=== PATIENT | female | born 1990 ===

== ENCOUNTER 2016-08-27 15:37 | Inpatient (IN) | payer OTHER ==
[~2016-08-27] VITALS: Ht 160 cm; Wt 49.9 kg
[2016-08-29] VITALS (7 sets, daily range): BP systolic 114–129; BP diastolic 68–90
[2016-08-29] MEDS ORDERED: CLONIDINE HCL 0.1 MG TABLET PO PRN (01:15)
[2016-08-29] MEDS ORDERED: ONDANSETRON 4 MG/2 ML VIAL IM PRN (01:15)
[2016-08-29] MEDS ORDERED: ACETAMINOPHEN 325 MG TABLET PO PRN (01:15)
[2016-08-29] MEDS ORDERED: MIRALAX 17 GM POWD.PACK PO PRN (01:15)
[2016-08-29] MEDS ORDERED: DICYCLOMINE HCL 20 MG TABLET PO PRN (01:15)
[2016-08-29] MEDS ORDERED: MAG HYDROX/AL HYDROX/SIMETH 30 ML LIQUID UDC PO PRN (01:15)
[2016-08-29] MEDS ORDERED: LORAZEPAM 2 MG/1 ML VIAL IM PRN (01:15)
[2016-08-29] MEDS ORDERED: DIAZEPAM 10 MG TABLET PO PRN ×2 (01:15)
[2016-08-29] MEDS ORDERED: LOPERAMIDE HCL 2 MG CAPSULE PO PRN ×2 (01:15)
[2016-08-29] MEDS ORDERED: IBUPROFEN 400 MG TABLET PO PRN (01:15)
[2016-08-29] MEDS ORDERED: DIAZEPAM 5 MG TABLET PO PRN (01:15)
--- NOTE | 2016-08-29 01:15 | NUR ---
Pre-Admission Pre admission assessment performed in the intake office of [facility]. Pt is a 25 yo female who is A&O x4 and ambulatory. She appears mildly intoxicated and answers questions appropriately. Vital signs B/P 115/78, HR 93, RR 16, O2 sat 100%, T 97.9, pain 0/10. She is 5'3" and weighs 110lb. Pt denies food or drug allergies. She reports that she has been using Xanax, Heroin, and Methamphetamine. She last used Xanax on 08/27/16, heroin on 08/27/16 at 0800, and methamphetamine 08/28/16 at 2200. Pt is in stable condition. [facility]
[2016-08-29] MEDS: ONDANSETRON ODT 4 MG TAB.RAPDIS SL PRN (01:51)
--- NOTE | 2016-08-29 01:52 | NUR ---
PRN Zofran administration Pt arrived on the unit and c/o nausea without vomiting. PRN Zofran administered.
[2016-08-29] MEDS ORDERED: ONDANSETRON ODT 4 MG TAB.RAPDIS ONE (01:59)
--- NOTE | 2016-08-29 02:52 | NUR ---
PRN Zofran reassessment PRN Zofran effective. Pt reports nausea is relieved.
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
[2016-08-29] MEDS ORDERED: LORAZEPAM 1 MG TABLET PO ONE (03:30)
[2016-08-29] MEDS ORDERED: BUPRENORPHINE HCL 2 MG TAB.SUBL SL ONE (03:36)
[2016-08-29] MEDS ORDERED: LORAZEPAM 1 MG TABLET ONE (03:37)
[2016-08-29] MEDS ORDERED: diphenhydrAMINE 50 MG CAPSULE ONE (03:37)
[2016-08-29] MEDS: diphenhydrAMINE 50 MG CAPSULE PO PRN (03:47)
[2016-08-29 03:54] LABS: *URINE HCG, QUAL NEGATIVE (NEGATIVE)
[2016-08-29 03:57] LABS: *AMPHETAMINE, URINE POSITIVE (NEGATIVE); *BARBITURATE, URINE NEGATIVE (NEGATIVE); *CANNABINOID, URINE POSITIVE (NEGATIVE); *COCCAINE, URINE NEGATIVE (NEGATIVE); *OPIATE, URINE POSITIVE (NEGATIVE); *PHENCYCLIDINE SCREEN,URINE NEGATIVE (NEGATIVE)
[2016-08-29] MEDS: BUPRENORPHINE HCL 2 MG TAB.SUBL SL PRN ×2 (04:03→10:08)
--- NOTE | 2016-08-29 04:04 | NUR ---
PRN Subutex and Benadryl/One time Ativan administered Pt reports anxiety, chills, body aches, all over "itching", and inability to sleep. She has difficulty sitting still and is unable to stop touching her left eye which appears to be infected. Educated pt regarding hand hygiene and to avoid touching her eyes. COWS 13 and CIWA 9. Contacted MD. Orders received and carried out.
--- NOTE | 2016-08-29 05:04 | NUR ---
One time Ativan/PRN Subutex and Benadryl reassessment Ativan, Subutex, and Benadryl somewhat effective. Pt reports that she feels somewhat better but has been unable to fall asleep. Her eyes are closed and she frequently shifts in bed. COWS 7 and CIWA 5. Encouraged relaxation.
[2016-08-29] MEDS ORDERED: TRAZ-147 PO (05:14)
[2016-08-29] MEDS ORDERED: METH750T3 PO (05:14)
[2016-08-29] MEDS ORDERED: BUPR300T54 PO (05:14)
[2016-08-29] MEDS ORDERED: TETR-47 OP (05:31)
[2016-08-29] MEDS ORDERED: MELA1TAB2 PO (05:31)
[2016-08-29] MEDS ORDERED: [UNRECOGNIZED DRUG - CODE] (05:31)
[2016-08-29] MEDS ORDERED: MENT118G TP (05:31)
[2016-08-29] MEDS ORDERED: MICO45CR12 VG (05:31)
[2016-08-29] MEDS ORDERED: GABA-534 PO (05:31)
--- NOTE | 2016-08-29 07:25 | NUR ---
END OF SHIFT Report provided to day shift nurse. Pt is lying in bed resting. She is a 25 yo female admitted to [facility] today at 0146. She is A&O and ambulatory. NKA, full code, regular diet. PRN Subutex, one time Ativan, and PRN Benadryl administered. Contact isolation precautions in place for suspected myaisis. Last COWS 7 and CIWA 5. She drank 500mL and did not sleep. Fall and seizure precautions in place. Bed down with call light in reach.
[2016-08-29] MEDS ORDERED: IVER3TAB2 PO (07:50)
--- NOTE | 2016-08-29 07:50 | NUR ---
START OF SHIFT NOTE Received report from night nurse, 25 year old female admitted for Benzo/Heroin/Meth dependence. NKA, full code, regular diet. Per endorsement pt received PRN Subutex, one time Ativan, and PRN Benadryl effective per night nurse. Pt cont with contact isolation precautions in place for suspected myiasis. Last COWS 7 and CIWA 5. Received pt alert awake oriented x4 in stable condition, breathing normal no SOB noted. Safety measures in place, call light within reach. Will cont to monitor.
[2016-08-29] MEDS: MULTIVITAMINS,THERAPEUTIC TABLET PO SCH (08:45)
[2016-08-29] MEDS ORDERED: NICOTINE 14 MG/24HR PATCH TD SCH (09:00)
--- NOTE | 2016-08-29 09:50 | NUR ---
PT COMMUNICATION Offered pt Nicotine patch, pt states"I just want to smoke". Educated pt that per MD pt unable to smoke at this time. Pt continues to refuses. Will cont to monitor.
--- NOTE | 2016-08-29 10:08 | NUR ---
PRN Subutex/Valium Pt reports anxiety, chills, body aches, difficulty sitting still and is unable to stop touching her left eye, agitation,Yawning, COWS 12 and CIWA 9. PRN Subutex 4mg SL/Valium 10mg Po administered as ordered. Addendum: 08/29/16 at 1221 by GABO SUGGS LVN Will cont to monitor.
[2016-08-29] MEDS: METHOCARBAMOL 750 MG TABLET PO PRN (10:09)
--- NOTE | 2016-08-29 10:09 | NUR ---
PRN ROBAXIN Pt c/o of muscle spasms, PRN Robaxin 750mg Po administered as ordered. Will cont to monitor. Safety measures in place.
--- NOTE | 2016-08-29 10:38 | NUR ---
SUBUTEX REASSESSMENT Upon assessment pt reported medication effective COWS score decreased to 5. Will cont to monitor.
[2016-08-29] MEDS ORDERED: LORAZEPAM 1 MG TABLET PO PRN ×2 (11:00)
--- NOTE | 2016-08-29 11:08 | NUR ---
VALIUM REASSESSMENT Upon assessment pt reported medication effective CIWA score decreased to 5. Will cont to monitor.
--- NOTE | 2016-08-29 11:09 | NUR ---
ROBAXIN REASSESSMENT Upon assessment pt reported medication effective muscle spasms decreased. Will cont to monitor.
[2016-08-29 12:52] LABS: ETHANOL < 3 MG/DL (0-0)
[2016-08-29 12:53] LABS: ALANINE AMINOTRANSFERASE 19 U/L (14-59); ALKALINE PHOSPHATASE 102 U/L (50-136); AMYLASE 44 U/L (25-115); ASPARTATE AMINOTRANSFERASE 22 U/L (15-37); BILIRUBIN,TOTAL 0.2 mg/dL (0.2-1.0); CARBON DIOXIDE 31 mmol/L (21-32); CHLORIDE 100 mmol/L (98-107); CREATININE 0.7 mg/dL (0.6-1.3); GLUCOSE 82 mg/dL (74-106); LIPASE 105 U/L (73-393); MAGNESIUM 1.9 mg/dL (1.8-2.4); POTASSIUM 3.7 mmol/L (3.5-5.1); TOTAL PROTEIN, SERUM 9.2 g/dL (6.4-8.2); UREA NITROGEN, BLOOD 9 mg/dL (7-18)
[2016-08-29 13:02] LABS: THYROID STIMULATING HORMONE 3.061 mIU/mL (0.358-3.740)
[2016-08-29 13:04] LABS: BASOPHILS # (AUTO) 0.2 K/uL (0.0-8.0); EOSINOPHILS # (AUTO) 0.2 K/uL (0.0-0.7); EOSINOPHILS % (AUTO) 1.3 % (0.0-7.0); HEMATOCRIT 43.3 % (37-47); HEMOGLOBIN 14.6 G/DL (12.0-16.0); LYMPHOCYTES # (AUTO) 3.7 K/UL (0.8-4.8); LYMPHOCYTES % (AUTO) 23.8 % (20.5-51.5); MEAN CORPUSCULAR HEMOGLOBIN 31.1 UUG (27.0-31.0); MEAN CORPUSCULAR HGB CONC 34 g/dL (32.0-37.0); MEAN CORPUSCULAR VOLUME 92.1 FL (81.0-99.0); MONOCYTES % (AUTO) 6.6 % (0.0-11.0); NEUTROPHILS # (AUTO) 10.3 K/UL (1.8-8.9); NEUTROPHILS % (AUTO) 67.3 % (38.5-71.5); PLATELET COUNT (AUTO) 428 K/UL (150-450); WHITE BLOOD COUNT (AUTO) 15.4 K/UL (4.0-11.2)
[2016-08-29] MEDS: BUPRENORPHINE HCL 2 MG TAB.SUBL SL SCH ×3 (13:31→21:00)
[2016-08-29] MEDS: LORAZEPAM 1 MG TABLET PO SCH ×3 (13:31→21:00)
[2016-08-29] MEDS: NICOTINE POLACRILEX 4 MG GUM-PK OF TEN BC PRN (13:52)
--- NOTE | 2016-08-29 13:57 | NUR ---
NICOTINE PATCH/NICOTINE GUM ADMINISTERED After speaking with Dr. Aguilar. Pt agreed to nicotine patch, and Gum. Patch and Gum administered as ordered. Will cont to monitor.
[2016-08-29] MEDS ORDERED: NICOTINE 21 MG/24HR PATCH TD ONE (14:00)
[2016-08-29 14:21] LABS: LYMPHOCYTES % (MANUAL) 27 % (20-40); MONOCYTES % (MANUAL) 2 % (2-10); NEUTROPHILS % (MANUAL) 63 % (42-75)
[2016-08-29] MEDS: GABAPENTIN 300 MG CAPSULE PO SCH ×2 (15:32→21:00)
--- NOTE | 2016-08-29 19:25 | NUR ---
END OF SHIFT NOTE Gave report to night nurse, 25 year old female admitted for Benzo/Heroin/Meth dependence. NKA, full code, regular diet. Pt stated on Subutex and Ativan taper tolerated well. Pt cont with contact isolation precautions in place for suspected myiasis. Subutex and Ativan scheduled dose held in the evening pt appears sedated and unsteady MD notified. Last CIWA-4, COWS-5. Pt received PRN medications effective. All safety measures in place, call light within reach. Pt endorsed to night nurse in stable condition.
--- NOTE | 2016-08-29 19:26 | NUR ---
Start of shift note Received report from day shift nurse. Pt is a 25 yo male, A+Ox4, presenting to [facility] for Benzo/Opiate/Methamphetamine dependence. Pt has NKA, is Full Code status, and on Regular diet. Pt is on Fall and Seizure precautions. Pt has HX of HPV, UTI, Depression, Anxiety, Fractured Sternum, T1 FX, Right hand FX, Left eye infection. Pt is on 5 day Ativan and Subutex tapers, tolerated well. No s/s of distress noted at this time. Respirations even and unlabored. Will continue to monitor. Addendum: 08/30/16 at 0608 by AILYN HUGHES LVN 25 yo Female. Pt is on 1:1 monitoring to safety and on C/I for possible scabies.
[2016-08-30 00:20] VITALS: BP 111/65
[2016-08-30 04:02] VITALS: BP 104/68
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
[2016-08-30 08:00] VITALS: BP 125/88
[2016-08-30 08:15] LABS: *BILIRUBIN,URIN NEGATIVE (NEGATIVE); *BLOOD, URINE 2+ (NEGATIVE); *CLARITY,URINE CLOUDY (CLEAR); *KETONES,URINE NEGATIVE (NEGATIVE); *PROTEIN,URINE 2+ (NEGATIVE); *UROBILINOGEN,URINE 0.2 E.U./dl (NORMAL); LEUKOCYTE ESTERASE ,URINE 3+ (NEGATIVE); NITRITE, URINE NEGATIVE (NEGATIVE); UGLUCOSE NEGATIVE (NEGATIVE)
[2016-08-30 08:38] LABS: *COLOR,URINE YELLOW (YELLOW)
[2016-08-30 08:40] LABS: BACTERIA,URINE MANY /HPF (NONE SEEN); RBC,URINE 50-80 /HPF (0-3); SQUAMOUS EPITHELIAL CELL,UR MODERATE /HPF (NONE SEEN); WBC,URINE TNTC /HPF (0-3)
[2016-08-30] MEDS ORDERED: TUBERCULIN,PURIF.PROT.DERIV. 5 TU/0.1 ML TEST ID ONE (09:00)
[2016-08-30] MEDS ORDERED: NICOTINE 14 MG/24HR PATCH TD SCH (09:00)
[2016-08-30] MEDS: LORAZEPAM 1 MG TABLET PO SCH ×3 (09:04→20:18)
[2016-08-30] MEDS: GABAPENTIN 300 MG CAPSULE PO SCH ×3 (09:05→20:17)
[2016-08-30] MEDS: MULTIVITAMINS,THERAPEUTIC TABLET PO SCH (09:05)
[2016-08-30] MEDS: BUPRENORPHINE HCL 2 MG TAB.SUBL SL SCH ×3 (09:05→20:18)
--- NOTE | 2016-08-30 09:30 | NUR ---
PPD administration Pt received PPD on left forearm at 0900 today, documentation completed in chart, pt educated on s/s reportable to nurse and MD, pt educated about s/e of medication pt verbalized understanding. Left arm to be reassessed on 09/01/16 @0900, all safety measures in place will continue to monitor and provide support.
[2016-08-30 12:00] VITALS: BP 101/64
[2016-08-30 16:00] VITALS: BP 100/67
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
[2016-08-30 20:16] VITALS: BP 116/78
[2016-08-30] MEDS: MUPIROCIN 2% OINT 22 GM TUBE NS SCH (20:17)
[2016-08-30] MEDS: SULFAMETH/TRIMETH 800/160 MG TABLET PO SCH (20:17)
[2016-08-30] MEDS: LACTOBACILLUS RHAMNOSUS GG 1 EACH CAPSULE PO SCH (20:17)
[2016-08-31 00:09] VITALS: BP 106/58
[2016-08-31 04:31] VITALS: BP 102/58
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
--- NOTE | 2016-08-31 07:01 | NUR ---
Start of Shift Notes: Received patient in her room. Alert and oriented x 4. Verbally responsive. Able to make his needs known. Respirations even and unlabored. No SOB noted. Skin warm and dry to touch. Abdomen soft and non-distended with (+) BS in all 4 quadrants. No complains of N/V/D or abdominal discomfort noted. Voids independently. Ambulatory ad yolanda with steady gait. Patient is a 25 year old female admitted for opiate/BZO and methamphetamine dependence who was placed on a 5-day Subutex and 5-day Ativan taper as ordered. No adverse reactions noted. Has past medical hx of left cyst infection, myiasis of scalp, UTI, depression, anxiety, fractured sternum, fractured T1, right hand fracture with seizures. NKA. FULL CODE. Regular diet. On fall and seizure precautions. Educated patient on the current plan of care and the medication regimen. Encouraged oral fluid intake and encouraged group participation to learn new skills to prevent relapse. Will continue to monitor throughout the shift.
[2016-08-31 08:00] VITALS: BP 98/53
[2016-08-31] MEDS: SULFAMETH/TRIMETH 800/160 MG TABLET PO SCH ×2 (08:23→20:23)
[2016-08-31] MEDS: MULTIVITAMINS,THERAPEUTIC TABLET PO SCH (08:23)
[2016-08-31] MEDS: LORAZEPAM 1 MG TABLET PO SCH ×4 (08:23→20:24)
[2016-08-31] MEDS: NICOTINE 21 MG/24HR PATCH TD SCH (08:23)
[2016-08-31] MEDS: MUPIROCIN 2% OINT 22 GM TUBE NS SCH ×2 (08:23→20:36)
[2016-08-31] MEDS: GABAPENTIN 300 MG CAPSULE PO SCH ×2 (08:23→14:41)
[2016-08-31] MEDS: LACTOBACILLUS RHAMNOSUS GG 1 EACH CAPSULE PO SCH ×2 (08:23→20:23)
[2016-08-31] MEDS ORDERED: BUPRENORPHINE HCL 2 MG TAB.SUBL SL SCH (09:00)
[2016-08-31 12:00] VITALS: BP 112/64
[2016-08-31] MEDS: METHOCARBAMOL 750 MG TABLET PO PRN (12:13)
--- NOTE | 2016-08-31 12:14 | NUR ---
Robaxin 750 mg PO given: Patient complained of muscle aches 5/10. Non-pharmacological interventions were ineffective. [id number] patient with Robaxin 750 mg PO as ordered. Will monitor for effectiveness.
[2016-08-31] MEDS ORDERED: KETOROLAC TROMETHAMINE 30 MG INJ IM PRN (12:30)
--- NOTE | 2016-08-31 13:14 | NUR ---
Re-assessment: Per patient, PRN Robaxin was effective in reducing patient's muscle aches and pains.
[2016-08-31] MEDS: BUPRENORPHINE HCL 2 MG TAB.SUBL SL SCH ×2 (14:41→20:23)
--- NOTE | 2016-08-31 14:42 | NUR ---
Clonidine 0.1mg PO given: Patient noted with chills, anxiety, agitation, sweats, and tearfulness. Redirected with non-pharmacological interventions. Medicated patient with Clonidine 0.1mg PO as ordered. Will monitor for effectiveness.
--- NOTE | 2016-08-31 15:42 | NUR ---
Re-assessment: Patient appears less anxious and less agitated at this time. PRN Clonidine was effective.
[2016-08-31 16:00] VITALS: BP 99/76
--- NOTE | 2016-08-31 18:49 | NUR ---
End of Shift Notes: Patient is a 25 year old female admitted for opiate/BZO and methamphetamine dependence who was placed on a 5-day Subutex and 5-day Ativan taper as ordered. No adverse reactions noted. Has past medical hx of left cyst infection, myiasis of scalp, UTI, depression, anxiety, fractured sternum, fractured T1, right hand fracture with seizures. NKA. FULL CODE. Regular diet. On fall and seizure precautions. On 1:1 and strict room restriction due to MRSA of nares and myiasis of the scalp as well as for safety due to unsteady gait and episodes of oversedation. On Bactrim DS and Bactroban as ordered. No adverse reactions noted. Initial COWS 13/CIWA 10, patient presented with muscle aches, and pain, anxiety and agitation, mild nausea with no vomit, sweating, chillsk, and hot flashes. Medicated patient with Robaxin 1240 for muscle aches 5/10 with help after 1 hour. Noted patient to be non-compliant with treatment and restrictions at times. Risk for AMA. Noted with episodes of agitation and anxiety, tearfulness noted. Unable to be redirected with non-pharmacological intervention. Medicated patient with Clonidine 0.1mg PO as ordered at 1442 with help after 1 hour. Per patient, Subutex and Ativan has been helping her with her withdrawal symptoms. Last COWS 4/CIWA 3. Contact isolation precaution observed due to MRSA of the nares. Encouraged frequent hand washing. All needs met and attended. Will continue to monitor.
[2016-08-31 20:00] VITALS: BP 118/64
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
[2016-08-31] MEDS ORDERED: GABAPENTIN 300 MG CAPSULE PO SCH (21:00)
[2016-08-31] MEDS: ONDANSETRON ODT 4 MG TAB.RAPDIS SL PRN (21:20)
--- NOTE | 2016-08-31 21:21 | NUR ---
RN note PRN Zofran Pt c/o feeling nauseous, with no vomiting. Administered Zofran 4 mg SL. Will reassess.
--- NOTE | 2016-08-31 22:23 | NUR ---
RN note reassess Pt verbalizes relief from nausea.
[2016-09-01] VITALS: BP 109/65
[2016-09-01 04:00] VITALS: BP 114/77
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
--- NOTE | 2016-09-01 07:30 | NUR ---
START OF SHIFT NOTE Received pt this Am laying in bed watching TV. Patient states she is feeling achey but reports she feels "good." Patient is on 5 day Subutex and Modified Ativan taper. Patient presents with generalized scratch peoples on body. Patient on contact precautions with sitter at bedside for 1:1 observation. She is positive for MRSA of the nares, left eye infection, and positive for UTI being treated with Bactrim. Patient slept for 6 hours and was given PRN Zofran ODT for nausea with effectiveness. Last COWS 6 CIWA 7 per night nurse. Vital signs stable. Patient in bed with bed locked and in lowest position and call peres within reach. Sitter at bedside. Will provide safe and supportive environment. Will continue to monitor. Addendum: 09/01/16 at 0913 by LIZETH CORONADO RN edit- 5 day Ativan taper. not modified
[2016-09-01 08:03] VITALS: BP 110/61
[2016-09-01] MEDS: MUPIROCIN 2% OINT 22 GM TUBE NS SCH ×2 (08:06→20:29)
[2016-09-01] MEDS: BUPRENORPHINE HCL 2 MG TAB.SUBL SL SCH ×3 (08:06→20:28)
[2016-09-01] MEDS: NICOTINE 21 MG/24HR PATCH TD SCH (08:07)
[2016-09-01] MEDS: SULFAMETH/TRIMETH 800/160 MG TABLET PO SCH (08:07)
[2016-09-01] MEDS: MULTIVITAMINS,THERAPEUTIC TABLET PO SCH (08:07)
[2016-09-01] MEDS: GABAPENTIN 300 MG CAPSULE PO SCH ×3 (08:07→20:27)
[2016-09-01] MEDS: LORAZEPAM 1 MG TABLET PO SCH ×3 (08:07→20:26)
[2016-09-01] MEDS: LACTOBACILLUS RHAMNOSUS GG 1 EACH CAPSULE PO SCH ×2 (08:07→20:26)
[2016-09-01 08:21] LABS: BASOPHILS % (AUTO) 0.5 % (0.0-2.0); EOSINOPHILS # (AUTO) 0.4 K/uL (0.0-0.7); EOSINOPHILS % (AUTO) 4.9 % (0.0-7.0); HEMOGLOBIN 12.9 G/DL (12.0-16.0); LYMPHOCYTES # (AUTO) 2.5 K/UL (0.8-4.8); LYMPHOCYTES % (AUTO) 32.8 % (20.5-51.5); MEAN CORPUSCULAR HEMOGLOBIN 31.1 UUG (27.0-31.0); MEAN CORPUSCULAR HGB CONC 34 g/dL (32.0-37.0); MEAN CORPUSCULAR VOLUME 91.3 FL (81.0-99.0); MONOCYTES % (AUTO) 12.5 % (0.0-11.0); NEUTROPHILS # (AUTO) 3.7 K/UL (1.8-8.9); NEUTROPHILS % (AUTO) 49.3 % (38.5-71.5); PLATELET COUNT (AUTO) 326 K/UL (150-450); RED BLOOD CELL COUNT(AUTO) 4.17 MIL/UL (4.2-5.4); WHITE BLOOD COUNT (AUTO) 7.6 K/UL (4.0-11.2)
[2016-09-01 08:23] LABS: CREATININE 0.7 mg/dL (0.6-1.3); MAGNESIUM 1.7 mg/dL (1.8-2.4); PHOSPHOROUS 3.4 mg/dL (2.5-4.9); POTASSIUM 3.8 mmol/L (3.5-5.1)
[2016-09-01] MEDS ORDERED: MAGNESIUM OXIDE 400 MG TABLET PO ONE (09:45)
[2016-09-01 12:00] VITALS: BP 97/60
[2016-09-01] MEDS: BACLOFEN 10 MG TABLET PO SCH ×2 (14:11→20:28)
[2016-09-01 16:00] VITALS: BP 112/68
[2016-09-01] MEDS: ONDANSETRON ODT 4 MG TAB.RAPDIS SL PRN (17:11)
--- NOTE | 2016-09-01 17:12 | NUR ---
PRN MEDICATION Patient c/o nausea. Administered Zofran ODT. Will reassess
--- NOTE | 2016-09-01 18:08 | NUR ---
PRN REASSESSMENT Patient sleeping in bed with RR even and unlabored, call peres within reach, side rails padded, sitter at bedside.
--- NOTE | 2016-09-01 18:23 | NUR ---
END OF SHIFT NOTE Patient continues on 5 day Subutex/ 5 day Ativan taper and tolerating well. Patient presents with fatigue and flat affect during shift. Patient presents with redness to left eye. Patient is on contact precautions for MRSA of the nares and Staph to the Left eye. Patient also has UTI and being treated with Bactrim. Patient showered today and cleaned up. Dr. Aguilar is aware. Patient continues on 1:1 for safety. Patient given PRN Zofran for nausea with effectiveness. Last COWS 10 CIWA 8. Patient sleeping in bed with bed locked and in lowest position, side rails padded x2, call peres within reach, sitter at bedside. All needs have been met. Safety measures in place. Will pass shift report to oncoming nurse.
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
[2016-09-01 20:00] VITALS: BP 114/75
[2016-09-01] MEDS: NICOTINE POLACRILEX 4 MG GUM-PK OF TEN BC PRN (20:28)
[2016-09-01] MEDS: AMOXICILLIN-CLAVUL 500-125MG TABLET PO SCH (20:28)
[2016-09-01] MEDS: METHOCARBAMOL 750 MG TABLET PO PRN (20:28)
[2016-09-01] MEDS: HYDROXYZINE PAMOATE 25 MG CAPSULE PO PRN (20:28)
--- NOTE | 2016-09-01 20:28 | NUR ---
PRN Administration Patient complains of 10/10 generalized body aches, moderate headache. Patient is very anxious and agitated d/t not being able to smoke and craving is high. PRN Nicotine gum, Motrin, Vistaril & Robaxin administered as ordered. Will reassess in 1 hour. Will continue to monitor patient.
[2016-09-01] MEDS ORDERED: NICOTINE 21 MG/24HR PATCH TD ONE ×2 (21:15→21:16)
[2016-09-01] MEDS ORDERED: NICOTINE 21 MG/24HR PATCH TD SCH (21:15)
--- NOTE | 2016-09-01 21:28 | NUR ---
PRN Reassessment Patient lying in bed with eyes closed. Patient with no facial grimacing noted. No complaints of nausea noted. Patient appears calm and comfortable. Will continue to monitor patient.
[2016-09-02] VITALS: BP 99/58
--- NOTE | 2016-09-02 | NUR ---
Cows/Ciwa deferred Patient Vitals taken and is WNL. Patient asleep at this time and refused to be assessed for Cows and Ciwa. Patient lying in bed with eyes closed. Patient appears calm and comfortable. No facial grimacing noted. Safety measures in place. Will continue to monitor patient.
[2016-09-02 04:00] VITALS: BP 96/56
--- NOTE | 2016-09-02 04:00 | NUR ---
Cows/Ciwa deferred Patient Vitals taken and is WNL. Patient asleep at this time. Unable to assess for Cows and Ciwa. Patient lying in bed with eyes closed. Patient appears calm and comfortable. No facial grimacing noted. Safety measures in place. Will continue to monitor patient.
--- NOTE | 2016-09-02 07:26 | NUR ---
End of Shift Note: Pt continues on a 5-day Subutex and 5-day and tolerating well. Pt continues to be on contact isolation for positive MRSA in nares, positive staph infection of left eye & E-Coli ESBL of the Urine. Patient currently on ATB Bactroban & Amoxicillin. Patient is on 1:1 observation for safety precautions. Last CIWA is 6 CIWA 4. PRN Nicotine gum, Motrin, Vistaril & Robaxin given during my shift and was effective. Pt was also given a one time order of the Nicotine patch for smoking cessation and was effective. Pt remained stable and vitals remains WNL Pt sleeps intermittently for a total of 6 7 hours. Pt consumed 897ml of fluids. Voided 2x with no bowel movement. All needs attended & met. Safety measures in place. Will continue to monitor patient.
--- NOTE | 2016-09-02 07:54 | NUR ---
BEGINNING OF SHIFT Patient endorsement report received from fuse cutter nurse, all pertinent information discussed. patient with admitting Dx: BZO/opiate dependence. Patient currently with ongoing 5 day Ativan taper AND 5 DAY Subutex taper as ordered, well tolerated, no ASE noted. patient currently on day 5 of taper. Patient admitted on the: 08/29/2016. As per fuse cutter patient slept for 7 hours, received PRN: Motrin, Vistaril, Robaxin, and nicotine gum, as per fuse cutter medications effective. Patient with last cow score of: 6, and last ciwa score of: 4. Patient received in bed with eyes closed, respirations even and unlabored, responsive to verbal stimuli, educated patient regarding plan of care for the day and medication regimen with good verbal understanding. safety measures in place. will continue to monitor.
[2016-09-02 08:04] VITALS: BP 99/60
[2016-09-02] MEDS: LORAZEPAM 1 MG TABLET PO SCH ×2 (08:26→21:46)
[2016-09-02] MEDS: GABAPENTIN 300 MG CAPSULE PO SCH ×3 (08:26→21:45)
[2016-09-02] MEDS: LACTOBACILLUS RHAMNOSUS GG 1 EACH CAPSULE PO SCH (08:26)
[2016-09-02] MEDS: MUPIROCIN 2% OINT 22 GM TUBE NS SCH ×2 (08:26→21:46)
[2016-09-02] MEDS: BACLOFEN 10 MG TABLET PO SCH ×3 (08:26→21:46)
[2016-09-02] MEDS: MULTIVITAMINS,THERAPEUTIC TABLET PO SCH (08:26)
[2016-09-02] MEDS: AMOXICILLIN-CLAVUL 500-125MG TABLET PO SCH ×2 (08:26→21:45)
[2016-09-02] MEDS: NICOTINE 21 MG/24HR PATCH TD SCH (08:26)
[2016-09-02] MEDS: BUPRENORPHINE HCL 2 MG TAB.SUBL SL SCH ×2 (08:27→21:45)
[2016-09-02 13:08] VITALS: BP 113/60
[2016-09-02 17:13] VITALS: BP 90/60
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
--- NOTE | 2016-09-02 19:21 | NUR ---
END OF SHIFT Patient alert and oriented x4, vital signs stable during shift. Patient with admitting Dx: Opiate/BZO Dependence. Patient with ongoing 5 day Ativan taper and 5 day Subutex as ordered,w ell tolerated, no ASE noted. Patient currently on day 5 of taper, well tolerated, no ASE noted. Patients 0900 assessment patient presented with: heart rate of 104, mild bone and joint aches, tremors that can be felt but not seen, mild anxiety, barely sweating, and c/o chills. 1300 assessment patient presented with: heart rate of 98, c/o chills, mild bone and joint aches, tremors that can be felt but not seen, mild anxiety and barely sweating with cow score of: 5 and ciwa score of: 3; 1700 assessment patient presented with: heart rate of 109, c/o chills, mild bone and joint aches, tremors that can be felt but not seen, and mild anxiety with cow score of: 6 and ciwa score of: 2. No PRN medications were administered during shift. Patient continues on contact isolation, precautions observed at all times. Patient continues on ATB therapy as ordered, well tolerate,d no ASE noted, patient afebrile during shift. Also with ongoing Bactroban oint to bilateral nares as ordered, well tolerated, no ASE noted. continues with 1:1 sitter for safety precautions. Patient encouraged adequate PO fluid intake as tolerated. Encouraged to attend group therapies/sessions to learn new coping skills to prevent relapse, denies any SI/HI. Safety measures in place. call light kept with in reach. all needs met and rendered. patient endorsed to caustic cresylate shift superintendent nurse, all pertinent information discussed.
[2016-09-02 20:00] VITALS: BP 110/67
[2016-09-02] MEDS: NICOTINE POLACRILEX 4 MG GUM-PK OF TEN BC PRN (21:45)
--- NOTE | 2016-09-02 21:45 | NUR ---
PRN Nicotine gum Patient requested medication to help stop her cravings to smoke. PRN Nicotine gum administered as ordered. Will continue to monitor patient.
[2016-09-02] MEDS: SULFAMETH/TRIMETH 800/160 MG TABLET PO SCH (21:46)
[2016-09-02] MEDS: MAGNESIUM HYDROXIDE 30 ML LIQUID UDC PO PRN (22:37)
--- NOTE | 2016-09-02 22:37 | NUR ---
PRN Milk of Magnesia Patient complains of constipation. Patient denies any stomach cramps. Abdomen soft & non-distended. PRN Milk of Magnesia administered as ordered. Will continue to monitor for bowel movement.
--- NOTE | 2016-09-02 22:45 | NUR ---
PRN Reassessment Patient verbalized less cravings to smoke. Patient lying in bed and appears calm and comfortable. No s/s of distress noted. Safety measures in place. Will continue to monitor patient.
[2016-09-03] VITALS: BP 106/65
[2016-09-03] MEDS: NAPHAZOLINE/PHENIR OPHT DROP 15 ML BOTTLE LEFTEYE PRN (04:03)
--- NOTE | 2016-09-03 04:03 | NUR ---
PRN Administration Patient complains eye itching and redness. Patient noted to be scratching eyes. Slight discomfort noted. Patient also complains of anxiety. Patient appears anxious and restless. PRN Naphcon opth drop and Vistaril administered as ordered. Will reassess in 1 hour. Will continue to monitor patient.
[2016-09-03] MEDS: HYDROXYZINE PAMOATE 25 MG CAPSULE PO PRN ×4 (04:11→22:04)
[2016-09-03 04:16] VITALS: BP 119/77
--- NOTE | 2016-09-03 05:03 | NUR ---
PRN Reassessment Patient asleep in bed at this time and appears comfortable. No eye scratching noted. Patient show no s/s of distress. Safety measures in place. Will continue to monitor patient.
--- NOTE | 2016-09-03 07:21 | NUR ---
End of Shift Note: Patient is alert to name place and situation. Pt continues completed her last dose of Subutex and Ativan taper last night. Pt continues to be on contact isolation for positive MRSA in nares, positive staph infection of left eye & E-Coli ESBL of the Urine. Patient currently on ATB Bactroban & Amoxicillin. Patient is on 1:1 observation for safety precautions. Last CIWA is 6 CIWA 4. PRN Nicotine gum, Vistaril & Milk of Magnesia given during my shift. Pt remained stable and vitals remains WNL Pt sleeps intermittently for a total of 7 hours. Pt consumed 1800 ml of fluids. Voided 4x with 1x bowel movement. All needs attended & met. Safety measures in place. Will endorse pt to day shift nurse.
--- NOTE | 2016-09-03 07:29 | NUR ---
BEGINNING OF SHIFT Patient endorsement report received from production shift supervisor nurse, all pertinent information discussed. patient with admitting Dx: BZO/opiate dependence. Patient completed 5 day ativan and 5 day subutex taper, well tolerated, no ASE will monitor closely for any s/sx of withdrawal, will monitor vital signs closely. Patient admitted on the: 08/29/2016. As per production shift supervisor patient slept for 7 hours, received PRN: Vistaril, nicotine gum, as per production shift supervisor medications effective. Patient with last cow score of: 6, and last ciwa score of: 4. Patient received in bed with eyes closed, respirations even and unlabored, responsive to verbal stimuli, educated patient regarding plan of care for the day and medication regimen with good verbal understanding. safety measures in place. will continue to monitor.
[2016-09-03] MEDS: GABAPENTIN 300 MG CAPSULE PO SCH ×3 (08:30→20:11)
[2016-09-03] MEDS: AMOXICILLIN-CLAVUL 500-125MG TABLET PO SCH ×2 (08:30→20:11)
[2016-09-03] MEDS: SULFAMETH/TRIMETH 800/160 MG TABLET PO SCH ×2 (08:30→20:11)
[2016-09-03] MEDS: NICOTINE 21 MG/24HR PATCH TD SCH (08:30)
[2016-09-03] MEDS: MUPIROCIN 2% OINT 22 GM TUBE NS SCH ×2 (08:30→20:13)
[2016-09-03] MEDS: BACLOFEN 10 MG TABLET PO SCH ×3 (08:30→20:11)
[2016-09-03] MEDS: MULTIVITAMINS,THERAPEUTIC TABLET PO SCH (08:31)
[2016-09-03 09:03] VITALS: BP 112/70
[2016-09-03 13:11] LABS: HEPATITIS B SURFACE AB Reactive (.)
[2016-09-03] MEDS ORDERED: BACL10TA PO (13:45)
[2016-09-03] MEDS ORDERED: MUPI22OI2 NS (13:45)
[2016-09-03] MEDS ORDERED: DICY20TA28 PO (13:45)
[2016-09-03] MEDS ORDERED: HYDR-3895 PO (13:45)
[2016-09-03] MEDS ORDERED: Amoxicillin-Clav 500-125MG Tab PO (13:45)
[2016-09-03] MEDS ORDERED: IBUP-1481 PO (13:45)
[2016-09-03] MEDS ORDERED: SULF1TAB3 PO (13:45)
[2016-09-03] MEDS ORDERED: GABA-534 PO (13:45)
[2016-09-03 13:50] VITALS: BP 119/72
[2016-09-03] MEDS: ONDANSETRON ODT 4 MG TAB.RAPDIS SL PRN ×2 (14:13→22:04)
[2016-09-03] MEDS: DICYCLOMINE HCL 20 MG TABLET PO SCH ×2 (14:13→20:11)
--- NOTE | 2016-09-03 14:14 | NUR ---
PRN VISTARIL/ZOFRAN Patient reports increase in anxiety and restlessness, provided with non pharmacological interventions and encouraged to express self, provided with calming reassurance with no help, patient administered Vistaril as ordered, will monitor effectiveness of medication. Patient also with c/o increase nausea, administered Zofran as ordered, will monitor effectiveness. safety measures in place. will continue to monitor closely.
--- NOTE | 2016-09-03 15:15 | NUR ---
ZOFRAN/VISTARIL REASSESSMENT Patient reports medication effective, no c/o nausea, and reports feeling less anxious. safety measures in place. will continue to monitor.
[2016-09-03 15:47] LABS: *AMPHETAMINE, URINE NEGATIVE (NEGATIVE); *BARBITURATE, URINE NEGATIVE (NEGATIVE); *CANNABINOID, URINE NEGATIVE (NEGATIVE); *COCCAINE, URINE NEGATIVE (NEGATIVE); *OPIATE, URINE NEGATIVE (NEGATIVE); *PHENCYCLIDINE SCREEN,URINE NEGATIVE (NEGATIVE)
[2016-09-03 17:00] VITALS: BP 112/70
--- NOTE | 2016-09-03 17:40 | NUR ---
MD communication Pt noted to have a steady gait, pt is able to ambulate up and down the hallway. Dr Aguilar notified, gave ok to d/c 1:1 and for pt to leave her room. Pt educated on hand hygiene, pt verbalized her understanding.
--- NOTE | 2016-09-03 19:01 | NUR ---
END OF SHIFT Patient alert and oriented x4, vital signs stable during shift. Patient with admitting Dx: Opiate/BZO Dependence. Patient completed 5 day Ativan taper and 5 day Subutex as ordered,w ell tolerated, no ASE noted. Patients sitter was discontinued during shift. Patient allowed to leave room, but continues under contact isolation. Patient educated regarding hand hygiene with good verbal understanding. Insolation precautions observed at all times. Patients 0900 assessment patient presented with Heart rate of: 102, mild bone and joint aches, irritable, anxiety, and mild agitation with cow score oF: 5 and ciwa score of: 5. 1300 assessment patient presented with: heart rate of 101, mild anxiety and mild agitation with cow score of: 3 and ciwa score of: 2. 1700 assessment patient presented with: heart rate of 96, and mild anxiety, and mild agitation with cow score of: 2 and ciwa score of: 2. Administered PRN: Vistaril as ordered and Zofran as ordered during shift, medications were both effective one hour post administration. Patient continues on ATB therapy as ordered, well tolerate,d no ASE noted, patient afebrile during shift. Also with ongoing Bactroban oint to bilateral nares as ordered, well tolerated, no ASE noted. Patient encouraged adequate PO fluid intake as tolerated. Denies any SI/HI. Safety measures in place. call light kept with in reach. all needs met and rendered. patient endorsed to manager shift nurse, all pertinent information discussed.
[2016-09-03 20:00] VITALS: BP 123/86
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
[2016-09-03] MEDS: MAGNESIUM HYDROXIDE 30 ML LIQUID UDC PO PRN (20:13)
--- NOTE | 2016-09-03 20:13 | NUR ---
Milk of Magnesia administered for reports of constipation Pt reported difficulty, "using the bathroom". Will continue to monitor for bowel movement
[2016-09-03] MEDS: diphenhydrAMINE 50 MG CAPSULE PO PRN (22:04)
--- NOTE | 2016-09-03 22:04 | NUR ---
PRN Administration Pt reports nausea, 1 episode of emesis noted. Pt reports feeling anxious and unable to sleep. Zofran 4mg ODT, Vistaril 50mg PRN and Benadryl 50mg PRN administered. Safety measures in place. Will continue to monitor.
--- NOTE | 2016-09-03 23:04 | NUR ---
PRN Reassessment Upon reassessment, pt is sleeping, eyes closed, no s/s of acute distress noted. Safety measures in place. Will continue to monitor.
[2016-09-04] VITALS: BP 110/65
--- NOTE | 2016-09-04 | NUR ---
Vital Signs BP 110/65, Pulse 102, respirations 18, SpO2 96%, temp 98.2, pain 0/10 CIWA/COWS deferred d/t pt sleeping - to assess while pt is awake as ordered. Safety measures in place. Will continue to monitor.
[2016-09-04 04:00] VITALS: BP 112/80
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
--- NOTE | 2016-09-04 07:02 | NUR ---
start of shift note: received pt from police shift commander nurse, pt is in stable condition at this time. pt is admitted to [facility] for benzo/opiate/meth withdrawal/dependence. pt remains on isolation. pt has staph of l eye and mrsa of nares and uti of ecoli. pt slept through the night. pts last ciwa 3 and cows 2. will assist pt in discharging and will continue to monitor pt for any changes
[2016-09-04 08:00] VITALS: BP 119/73
[2016-09-04] MEDS: MUPIROCIN 2% OINT 22 GM TUBE NS SCH (08:21)
[2016-09-04] MEDS: BACLOFEN 10 MG TABLET PO SCH (08:21)
[2016-09-04] MEDS: GABAPENTIN 300 MG CAPSULE PO SCH (08:21)
[2016-09-04] MEDS: NAPHAZOLINE/PHENIR OPHT DROP 15 ML BOTTLE LEFTEYE PRN (08:21)
[2016-09-04] MEDS: AMOXICILLIN-CLAVUL 500-125MG TABLET PO SCH (08:22)
[2016-09-04] MEDS: SULFAMETH/TRIMETH 800/160 MG TABLET PO SCH (08:22)
[2016-09-04] MEDS: MULTIVITAMINS,THERAPEUTIC TABLET PO SCH (08:22)
[2016-09-04] MEDS: DICYCLOMINE HCL 20 MG TABLET PO SCH (08:22)
[2016-09-04] MEDS: NICOTINE 21 MG/24HR PATCH TD SCH (08:24)
--- NOTE | 2016-09-04 09:40 | NUR ---
D/C NOTE Pt is A/O x4. V/S remain WNL. Pt denies SI/HI or hallucinations. Pt shows no s/s of acute withdrawal at this time, and is stable. has medically cleared pt for d/c. COWS 2, CIWA 2, denies pain. Education on Hepatitis C, smoking cessation and medication side effects provided. Pt verbalizes understanding. All pt belongings are in belonging bag, including prescriptions, and home medications. Refuses PNU vaccination. Pt is being accompanied by HVAC ENGINEER at this time to be transported to rehab. All needs met.
== END 2016-09-04 09:40 | DRG 895 ==
LOC: SRC 08-29 00:41
PROVIDERS: ADMIT Internal Medicine; ATTEND Internal Medicine
PROC: HZ2ZZZZ Detoxification Services for Substance Abuse Treatment (ICD-10-PCS; principal; 2016-08-29)
PROC: HZ31ZZZ Individual Counseling for Substance Abuse Treatment, Behavioral (ICD-10-PCS; 2016-09-01)
DX: F11.23 Opioid dependence with withdrawal (principal); N30.00 Acute cystitis without hematuria; F13.230 Sedative, hypnotic or anxiolytic dependence with withdrawal, uncomplicated; F41.9 Anxiety disorder, unspecified; F17.210 Nicotine dependence, cigarettes, uncomplicated; Z22.322 Carrier or suspected carrier of Methicillin resistant Staphylococcus aureus; B87.0 Cutaneous myiasis; Z16.24 Resistance to multiple antibiotics; L71.9 Rosacea, unspecified; F32.9 Major depressive disorder, single episode, unspecified; F15.23 Other stimulant dependence with withdrawal; E83.42 Hypomagnesemia
CPT/HCPCS: 36415; 80307; 80324; 80349; 80361; 83690; 83735; 84100; 84443; 84703; 85025; 86580; 86592; 86705; 86706; 86803; 87070; 87077; 87086; 87340; 87806; A4663; G0480; Q0162; Q0163

== ENCOUNTER 2016-11-25 20:45 | Inpatient (IN) | payer OTHER ==
[~2016-11-25] VITALS: Ht 160 cm; Wt 45.4 kg
[~2016-11-25 20:45] MED LIST: Amoxicillin-Clav 500-125MG Tab PO; BACL10TA PO; DICY20TA28 PO; GABA-534 PO; HYDR-3895 PO; IBUP-1953 PO; MELA1TAB2 PO; METH750T3 PO; MICO45CR12 VG; MUPI22OI2 NS; SULF1TAB3 PO; TETR-55 OP
[2016-11-25 22:00] VITALS: BP 114/75
--- NOTE | 2016-11-25 22:05 | NUR ---
Pre-Admission Pre-admission assessment performed in the intake department of [facility]. Pt is A&O and ambulatory with a steady gait. Her face is pale and she appears mildly intoxicated. She answers all questions appropriately. Pt reports NKA. Vital signs are B/P 121/78, HR 104, RR 16, O2 sat 100%, T 98.0, pain 0/10. Pt reports that she has been using Xanax, Heroin, and Methamphetamine. Pt is stable and admission to continue on the [facility] unit.
[2016-11-25] MEDS ORDERED: MIRALAX 17 GM POWD.PACK PO PRN (22:30)
[2016-11-25] MEDS ORDERED: LORAZEPAM 2 MG/1 ML VIAL IM PRN (22:30)
[2016-11-25] MEDS ORDERED: CLONIDINE HCL 0.1 MG TABLET PO PRN (22:30)
[2016-11-25] MEDS ORDERED: LOPERAMIDE HCL 2 MG CAPSULE PO PRN ×2 (22:30)
[2016-11-25] MEDS ORDERED: ACETAMINOPHEN 325 MG TABLET PO PRN (22:30)
[2016-11-25] MEDS ORDERED: DIAZEPAM 5 MG TABLET PO PRN (22:30)
[2016-11-25] MEDS ORDERED: DICYCLOMINE HCL 20 MG TABLET PO PRN (22:30)
[2016-11-25] MEDS ORDERED: THIAMINE HCL 200 MG/2 ML VIAL IM ONE (22:30)
[2016-11-25] MEDS ORDERED: DIAZEPAM 10 MG TABLET PO PRN (22:30)
[2016-11-25] MEDS: ONDANSETRON ODT 4 MG TAB.RAPDIS SL PRN (22:36)
--- NOTE | 2016-11-25 22:37 | NUR ---
PRN Zofran Pt arrived on the unit and c/o nausea without vomiting and her face is pale. PRN Zofran administered.
[2016-11-25] MEDS ORDERED: ONDANSETRON ODT 4 MG TAB.RAPDIS ONE (22:46)
[2016-11-25 22:54] LABS: *AMPHETAMINE, URINE POSITIVE (NEGATIVE); *BARBITURATE, URINE NEGATIVE (NEGATIVE); *CANNABINOID, URINE POSITIVE (NEGATIVE); *COCCAINE, URINE NEGATIVE (NEGATIVE); *OPIATE, URINE POSITIVE (NEGATIVE); *PHENCYCLIDINE SCREEN,URINE NEGATIVE (NEGATIVE); *URINE HCG, QUAL NEGATIVE (NEGATIVE)
[2016-11-25] MEDS: BUPRENORPHINE HCL 2 MG TAB.SUBL SL PRN (23:02)
[2016-11-25] MEDS: IBUPROFEN 400 MG TABLET PO PRN (23:02)
--- NOTE | 2016-11-25 23:03 | NUR ---
PRN Motrin and Subutex Pt c/o headache, chills, runny nose, mild nausea, and anxiety. She is observed to have tremors and goose bumps. COWS 12 and CIWA 7. PRN Subutex and Motrin administered.
[2016-11-25] MEDS ORDERED: IBUPROFEN 400 MG TABLET ONE (23:11)
[2016-11-25] MEDS ORDERED: BUPRENORPHINE HCL 2 MG TAB.SUBL SL ONE (23:12)
[2016-11-25 23:28] LABS: BASOPHILS # (AUTO) 0.2 K/uL (0.0-8.0); BASOPHILS % (AUTO) 1.4 % (0.0-2.0); EOSINOPHILS # (AUTO) 0.4 K/uL (0.0-0.7); HEMATOCRIT 37.9 % (37-47); HEMOGLOBIN 12.7 G/DL (12.0-16.0); LYMPHOCYTES # (AUTO) 2.5 K/UL (0.8-4.8); LYMPHOCYTES % (AUTO) 21.4 % (20.5-51.5); MEAN CORPUSCULAR HEMOGLOBIN 30.8 UUG (27.0-31.0); MEAN CORPUSCULAR HGB CONC 34 g/dL (32.0-37.0); MEAN CORPUSCULAR VOLUME 91.9 FL (81.0-99.0); MONOCYTES # (AUTO) 0.9 K/UL (0.1-1.30); MONOCYTES % (AUTO) 7.6 % (0.0-11.0); NEUTROPHILS # (AUTO) 7.8 K/UL (1.8-8.9); NEUTROPHILS % (AUTO) 66.6 % (38.5-71.5); PLATELET COUNT (AUTO) 410 K/UL (150-450); RED BLOOD CELL COUNT(AUTO) 4.12 MIL/UL (4.2-5.4); WHITE BLOOD COUNT (AUTO) 11.8 K/UL (4.0-11.2)
[2016-11-25 23:34] LABS: ALANINE AMINOTRANSFERASE 22 U/L (14-59); ALKALINE PHOSPHATASE 75 U/L (50-136); AMYLASE 52 U/L (25-115); ASPARTATE AMINOTRANSFERASE 14 U/L (15-37); BILIRUBIN,TOTAL 0.2 mg/dL (0.2-1.0); CARBON DIOXIDE 31 mmol/L (21-32); CHLORIDE 102 mmol/L (98-107); CREATININE 0.6 mg/dL (0.6-1.3); GLUCOSE 84 mg/dL (74-106); LIPASE 119 U/L (73-393); MAGNESIUM 1.9 mg/dL (1.8-2.4); TOTAL PROTEIN, SERUM 7.4 g/dL (6.4-8.2); UREA NITROGEN, BLOOD 8 mg/dL (7-18)
[2016-11-25 23:40] LABS: THYROID STIMULATING HORMONE 0.542 mIU/mL (0.358-3.740)
--- NOTE | 2016-11-25 23:45 | NUR ---
ADMISSION Pt is a 26 yo female who [facility]16. She is A&O x4 and ambulatory with a steady gait. NKA, full code status, and on a regular diet. Pt appears mildly intoxicated and answers questions appropriately. Vital signs in intake are B/P 121/78, HR 104, RR 16, O2 sat 100%, T 98.0, pain 0/10. She is 5'3" and weighs 100lb. Pt has lost 10lb in the past 3 months. She has a PMH of HPV, h/o UTI, h/o myiasis, fractured sternum, fractured T1, fractured right hand, anxiety, and depression. Pt denies SI/HI and does not have a h/o seizures. Lung sounds clear, PERRLA, brisk capillary refill, bowel sounds present. She has pick peoples on bilateral hands from methamphetamine use. LMP was 11/18/16. She last had an episode of diarrhea earlier today. Pt reports nausea, and is observed to have goose bumps, and pale skin. History of Use 1) Xanax 2mg OQD for the past 3 months. Last used 1mg 11/25/16 at 0800. She has used Xanax for 12 years. 2) Heroin IV 1 - 1.5 grams per day for the past 3 months. Last used 0.5mg 11/25/16 at 0800. She has used Heroin for 10 years. 3) Methamphetamine IV 1.5 grams per day for the past 3 months. Last used 0.5 grams on 11/25/16 at 1900. She has used meth for 12 years. 4) GHB 1oz per day for the past 3 months. Last used 1 oz 11/24/16. She has used GHB "off and on". Treatment History 1) [facility] 08/2016 2) [facility] 05/2016 for 90 days. Pt smokes 5 cigarettes per day. She decided to come to treatment today because "I'm over it". Symptoms when she doesn't use include "nausea, anxiety, insomnia, body aches, chills, and fever". Pt's longest period of sobriety was 90 days 05/2016. Recently she is unemployed and has been living with friends. She does not have a primary care physician at home. COWS 12 and CIWA 7 on admission. Pt educated regarding use of the call light and all questions answered. Safety measures in place. Bed is down with call light in reach.
[2016-11-25 23:47] LABS: ETHANOL < 3 MG/DL (0-0)
[2016-11-26] VITALS (7 sets, daily range): BP systolic 95–116; BP diastolic 61–77
--- NOTE | 2016-11-26 00:02 | NUR ---
PRN Motrin and Subutex reassessment PRN Motrin and Subutex effective. Pt reports headache and nausea are relieved. She states "I feel better". Goose bumps and chills are no longer present. COWS 3 and CIWA 2.
[2016-11-26] MEDS: DIAZEPAM 10 MG TABLET PO PRN ×2 (02:58→08:26)
[2016-11-26] MEDS: diphenhydrAMINE 50 MG CAPSULE PO PRN (02:59)
--- NOTE | 2016-11-26 03:00 | NUR ---
PRN Valium and Benadryl Pt is frequently shifting in bed and rubbing her skin. Her pupils are larger than normal size. She reports that her skin feels "uncomfortable and "stringy". She is unable to sleep. Skin is warm, moist, and intact. COWS 6 and CIWA 10
[2016-11-26] MEDS ORDERED: diphenhydrAMINE 50 MG CAPSULE ONE (03:04)
[2016-11-26] MEDS ORDERED: DIAZEPAM 10 MG TABLET ONE (03:04)
--- NOTE | 2016-11-26 04:00 | NUR ---
0400 PRN Valium and Benadryl reassessment PRN Valium and Benadryl effective. Pt is lying in bed resting with eyes closed. Respirations even and unlabored. Safety measures in place.
--- NOTE | 2016-11-26 05:00 | NUR ---
PRN Zofran and Vistaril Pt woke up and reports nausea, anxiety, and that she has been unable to stay asleep although she feels tired. She states, "I'm starting to feel bad again". COWS 9 and CIWA 6. PRN Zofran and Vistaril administered.
[2016-11-26] MEDS: HYDROXYZINE PAMOATE 25 MG CAPSULE PO PRN (05:02)
[2016-11-26] MEDS: ONDANSETRON ODT 4 MG TAB.RAPDIS SL PRN (05:03)
[2016-11-26] MEDS ORDERED: HYDROXYZINE PAMOATE 25 MG CAPSULE ONE (05:10)
[2016-11-26] MEDS ORDERED: ONDANSETRON ODT 4 MG TAB.RAPDIS ONE (05:10)
--- NOTE | 2016-11-26 07:06 | NUR ---
END OF SHIFT Report provided to day shift nurse. Pt is lying in bed resting. She is a 26 yo female admitted to [facility] on 11/25 for BZD and Opiate dependence with a h/o methamphetamine use. She is A&O and ambulatory. NKA, full code, regular diet. She was experiencing s/s of withdrawal on admission. PRN Zofran x2, PRN Subutex, Motrin, Benadryl, Valium, and Vistaril administered. Last COWS 9 and CIWA 6 before last PRN's. She was able to fall asleep after. She drank 653mL and slept for 3 hours. Safety measures in place.
--- NOTE | 2016-11-26 07:07 | NUR ---
Start of Shift Notes: Received patient in her room. Alert and oriented x 4. Verbally responsive. Able to make needs known. Respirations even and unlabored. No SOB noted. SKin warm and dry to touch. Abdomen soft and non-distended. BS (+) in all 4 quadrants. No complains of N/V/D or constipation noted. Voids independently. Ambulatory ad yolanda with steady gait. Patient is a 26 year old female admitted for BZO/opiate/methamphetamine and GHB dependence who was placed on PRNs at this time. Has past medical hx of HPV, UTI, anxiety, depression, myiasis, fx sternum, fracture of t1 and right hand fracture. NKA. FULL CODE. Regular diet. On fall and seizure precautions. Educated patient on her current plan of care for the day and his medication regimen. Encouraged oral fluid intake and encouraged group participation to learn new skills to prevent relapse. On fall and seizure precautions. Will continue to monitor closely.
[2016-11-26] MEDS: MULTIVITAMINS,THERAPEUTIC TABLET PO SCH (08:26)
[2016-11-26] MEDS: FOLIC ACID 1 MG TABLET PO SCH (08:26)
[2016-11-26] MEDS: THIAMINE HCL 100 MG TABLET PO SCH (08:26)
[2016-11-26] MEDS: METHOCARBAMOL 750 MG TABLET PO PRN (08:26)
[2016-11-26] MEDS: BUPRENORPHINE HCL 2 MG TAB.SUBL SL PRN (08:26)
--- NOTE | 2016-11-26 08:26 | NUR ---
Clonidine 0.1mg/Robaxin 750mg/Sub 4/Valium 10 PO given: COWS 17/CIWA 12, patient noted with complains of chills, hot flashes, muscle aches and pains, goosebumps, pupil dilation, yawning, anxiety and agitation. Medicated patient with Clonidine 0.1mg PO, Robaxin 750mg PO, Subutex 4 mg SL adn Vaium 10 mg PO per COWS/CIWA score. Will monitor for effectiveness.
--- NOTE | 2016-11-26 08:56 | NUR ---
Re-assessment: Subutex 4mg COWS 9. Less anxiety, less agitation, less chills and hot flashes and skin is smooth.
[2016-11-26] MEDS ORDERED: TUBERCULIN,PURIF.PROT.DERIV. 5 TU/0.1 ML TEST ID ONE (09:00)
--- NOTE | 2016-11-26 09:26 | NUR ---
Re-assessment: Clonidine 0.1mg/Robaxin 750mg/Valium 10mg PO CIWA 8, no nausea, less anxiety, less sweating and less agitation noted.
[2016-11-26] MEDS ORDERED: LORAZEPAM 1 MG TABLET PO PRN ×2 (10:00)
[2016-11-26] MEDS: GABAPENTIN 300 MG CAPSULE PO SCH ×2 (12:40→16:19)
[2016-11-26] MEDS: LORAZEPAM 1 MG TABLET PO SCH ×3 (12:40→21:17)
[2016-11-26] MEDS: BUPRENORPHINE HCL 2 MG TAB.SUBL SL SCH ×3 (12:41→21:17)
[2016-11-26] MEDS: buPROPion XL 150 MG TAB.SR.24H PO SCH (12:41)
[2016-11-26] MEDS ORDERED: ARNICA (13:57)
[2016-11-26] MEDS ORDERED: [UNRECOGNIZED DRUG - CODE] (13:57)
[2016-11-26] MEDS ORDERED: [UNRECOGNIZED DRUG - OTHER] PO (13:57)
[2016-11-26] MEDS ORDERED: [UNRECOGNIZED DRUG - OTHER] (13:57)
[2016-11-26] MEDS ORDERED: CAMPHOR (13:57)
--- NOTE | 2016-11-26 18:43 | NUR ---
End of Shift Notes: Patient initiated 5-day Ativan and 5-day Subutex taper as ordered. No adverse reactions noted. VS monitored closely. No significant abnormalities noted. Withdrawal symptoms were closely monitored. Initial COWS 17/CIWA 12, patient presented with anxiety, fidgeting, agitation. Sweats, tremors, goosebumps, yawning, chills, hot flashes and muscle aches and pains. Medicated patient with Clonidine, Robaxin, Subutex and Valium 10 mg PO as ordered at 0826 with help after 1 hour. Last COWS 6/CIWA 4. Per patient, Subutex and Ativan has been effective in managing her withdrawal symptoms. Unable to participate in group and activities. All needs met and attended. Will continue to monitor closely.
--- NOTE | 2016-11-26 20:00 | NUR ---
START OF SHIFT Received report from day shift nurse. Pt attended a group meeting and returned to her room after. She is a 26 yo female admitted to [facility] on 11/25 for opiate and BZD dependence. She is A&O, ambulatory with a steady gait, but appears slightly drowsy. She has NKA, is full code status, and on a regular diet. She has a PMH of HPV, h/o UTI, myiasis, fractured sternum, fractured T1, fractured right hand, anxiety, and depression. On admission she admitted to using xanax 2 mg QOD, heroin 1-1.5 grams per day, methamphetamine 2 grams per day, and GHB 1oz per day. Pt started a 5 day Ativan and 5 day Subutex taper today. She reports anxiety, skin crawling, body aches. Pt is observed to be rubbing her skin in various places. She reports that she has not slept since prior to admission. Tapers due tonight. Fall and seizure precautions in place. Bed is down with call light in reach.
[2016-11-26] MEDS: BACLOFEN 10 MG TABLET PO PRN (21:27)
--- NOTE | 2016-11-26 21:28 | NUR ---
PRN Baclofen Pt reports generalized muscle aches 7/10 and spasms. She is observed to be restless and unable to relax in bed. PRN Baclofen administered.
[2016-11-26] MEDS ORDERED: TRAZODONE 50 MG TABLET PO ONE (21:45)
--- NOTE | 2016-11-26 22:28 | NUR ---
PRN Baclofen reassessment PRN Baclofen effective. Pt reports muscle aches are reduced to 2/10. She is lying in bed resting.
[2016-11-27] VITALS: BP 106/74
--- NOTE | 2016-11-27 | NUR ---
0000 COWS and CIWA deferred COWS and CIWA ordered Q4HWA. Pt is lying in bed resting with eyes closed. She is observed to be moving around in bed while sleeping. Vital signs obtained. Safety measures in place.
[2016-11-27 04:00] VITALS: BP 112/65
--- NOTE | 2016-11-27 04:00 | NUR ---
0400 COWS and CIWA deferred COWS and CIWA ordered Q4HWA. Pt is lying in bed resting with eyes closed. Vital signs obtained. Safety measures in place.
--- NOTE | 2016-11-27 07:25 | NUR ---
END OF SHIFT Report provided to day shift nurse. Pt is lying in bed resting. She is a 26 yo female admitted to [facility] on 11/25 for opiate and BZD dependence. She is A&O and ambulatory. NKA, is full code status, and on a regular diet. She has a PMH of HPV, h/o UTI, myiasis, fractured sternum, fractured T1, fractured right hand, anxiety, and depression. On admission she admitted to using xanax 2 mg QOD, heroin 1-1.5 grams per day, methamphetamine 2 grams per day, and GHB 1oz per day. Pt started a 5 day Ativan and 5 day Subutex taper 11/26. Pt was able to fall asleep and she was shifting in bed, sitting up, and at times lying sideways. Close monitoring was performed by staff for safety. Pt ambulates with a steady gait when awake. Last COWS 5 and CIWA 3. She drank 591mL and slept for 8 hours. Fall and seizure precautions in place. Bed is down with call light in reach.
--- NOTE | 2016-11-27 07:30 | NUR ---
Start of shift note; Received report from night nurse. Patient is a 26 year old female admitted on 11/25/16 for Benzo, Opiate dependence. Patient was placed on 5 day Ativan and 5 day Subutex tapers, no adverse reactions noted. Patient is on full code status, on regular diet , NKA. Patient is on fall and seizure precaution. Bed in lowest position, call light within reach. Will continue to monitor patient.
[2016-11-27 08:00] VITALS: BP 102/72
[2016-11-27] MEDS ORDERED: LORAZEPAM 1 MG TABLET PO SCH (09:00)
[2016-11-27] MEDS: MULTIVITAMINS,THERAPEUTIC TABLET PO SCH (09:49)
[2016-11-27] MEDS: LORAZEPAM 1 MG TABLET PO SCH ×4 (09:49→21:06)
[2016-11-27] MEDS: BUPRENORPHINE HCL 2 MG TAB.SUBL SL SCH ×3 (09:49→21:07)
[2016-11-27] MEDS: FOLIC ACID 1 MG TABLET PO SCH (09:49)
[2016-11-27] MEDS: buPROPion XL 150 MG TAB.SR.24H PO SCH (09:49)
[2016-11-27] MEDS: GABAPENTIN 300 MG CAPSULE PO SCH ×3 (09:49→16:38)
[2016-11-27] MEDS: THIAMINE HCL 100 MG TABLET PO SCH (09:51)
[2016-11-27 12:00] VITALS: BP 113/72
--- NOTE | 2016-11-27 14:52 | NUR ---
Medications held; Patient appears sedated, 1300 and 1500 due medications held due to sedation. MD was notified. Will closely monitor patient.
[2016-11-27 16:00] VITALS: BP 102/80
--- NOTE | 2016-11-27 19:13 | NUR ---
End of shift note; Patient is AOX4. Patient is a 26 year old female admitted on 11/25/16 for Benzo, Opiate dependence. Patient was placed on 5 day Ativan and 5 day Subutex tapers, no adverse reactions noted. Patient is on full code status, on regular diet , NKA. Patient is on fall and seizure precaution. Medications due were held due to sedation for 1300, 1500 and 1700, MD was notified. Patient is currently under direct supervision to prevent falls. All safety measures secured. Met all needs.
--- NOTE | 2016-11-27 19:45 | NUR ---
START OF SHIFT Received report from day shift nurse. Pt is lying in bed sleeping and is easily arousable. She is a 26 yo female admitted to [facility] on 11/25 for opiate and BZD dependence. She is A&O and ambulatory. She has NKA, is full code status, and on a regular diet. Pt has a 1:[address] due to frequent shifting and sitting up in bed while sleeping. She has a PMH of HPV, h/o UTI, myiasis, fractured sternum, fractured T1, fractured right hand, anxiety, and depression. On admission she admitted to using xanax 2 mg QOD, heroin 1-1.5 grams per day, methamphetamine 2 grams per day, and GHB 1oz per day. Pt started a 5 day Ativan and 5 day Subutex taper on 11/26. She reports generalized body aches, nasal stuffiness, anxiety, and inability to relax. Tapers due tonight. Fall and seizure precautions in place. Bed is down with call light in reach.
[2016-11-27 20:00] VITALS: BP 120/82
[2016-11-27] MEDS: BACLOFEN 10 MG TABLET PO PRN (21:06)
[2016-11-27] MEDS: ONDANSETRON ODT 4 MG TAB.RAPDIS SL PRN (21:06)
[2016-11-27] MEDS: MAGNESIUM HYDROXIDE 30 ML LIQUID UDC PO PRN (21:07)
--- NOTE | 2016-11-27 21:08 | NUR ---
PRN Baclofen, Zofran, and Milk of Magnesia Pt c/o generalized body aches 6/10, nausea, and difficulty having a bowel movement. She had one small hard BM tonight. PRN Baclofen, Zofran, and Milk of Magnesia administered.
--- NOTE | 2016-11-27 22:08 | NUR ---
PRN Baclofen, Zofran and Milk of Magnesia reassessment PRN Baclofen effective. Pt reports body aches are reduced to 2/10. PRN Zofran effective. Pt reports nausea is relieved. Milk of Magnesia not yet effective. Pt has not yet has a bowel movement.
[2016-11-28] VITALS: BP 100/67
[2016-11-28] MEDS: HYDROXYZINE PAMOATE 25 MG CAPSULE PO PRN (03:32)
--- NOTE | 2016-11-28 03:33 | NUR ---
PRN Vistaril Pt reports anxiety, restlessness, and inability to stay sleep. PRN Vistaril administered.
[2016-11-28 04:00] VITALS: BP 119/86
--- NOTE | 2016-11-28 04:33 | NUR ---
PRN Vistaril reassessment PRN Vistaril effective. Pt is lying in bed resting in bed with eyes closed. Respirations even and unlabored. Safety measures in place.
--- NOTE | 2016-11-28 07:05 | NUR ---
Start of Shift Report from the night nurse: pt is here for Benzo r/t Ativan 0.5mg tid, Opiates r/t Oxycodone 30mg tabs with 10-15 tabs per day, Lunesta 3-5mg and Marijuana with 1 joint; 4 day Valium taper completed and the pt is to be d/c'd today during my shift. Pt has NKDA, allergic to perfume, is a full code, regular diet, fall precautions ordered. HHx: Anxiety, depression, bipolar, PTSD and relapses. V/S stable. Skin is intact. Pt refused the PPD test and is aware with no new orders for assessment and pt has no s/sx of TB during my shift. No PRN's given last night. Pt is awake in room and getting ready for d/c. Will cont.to monitor the pt. Last JONNY 2 Addendum: 11/28/16 at 1441 by MARCIN SAGE RN ERROR WRONG PATIENT CHARTING
--- NOTE | 2016-11-28 07:20 | NUR ---
Start of Shift Report from the night nurse; pt is a 26 y/o female here for Benzo r/t Xanax 2mg qod, Heroin 1.1.5g IV daily, Methamphetamine 2g dialy and GHB 102mg dialy; 5 day Ativan taper and 5day Subutex taper. Pt is a full code, NKA, regular diet, fall precautions with sitter for safety r/t risk of falling OOB since pt caught rolling OOB and seizure precautions ordered. HHx: HPV, UTI, Anxiety, Depression, Myiasis, multiple fx's, Multiple relapses. V/S stable. Skin is not intact with multiple lesions from picking at skin. PRN Vistaril, baclofen, Zofran and MOM given last night. Last COWS 5 CIWA 5. Pt is asleep in room. Will cont. to monitor the pt.
[2016-11-28 08:00] VITALS: BP 117/84
[2016-11-28] MEDS: buPROPion XL 150 MG TAB.SR.24H PO SCH (08:37)
[2016-11-28] MEDS: MULTIVITAMINS,THERAPEUTIC TABLET PO SCH (08:37)
[2016-11-28] MEDS: THIAMINE HCL 100 MG TABLET PO SCH (08:37)
[2016-11-28] MEDS: LORAZEPAM 1 MG TABLET PO SCH ×3 (08:37→20:30)
[2016-11-28] MEDS: GABAPENTIN 300 MG CAPSULE PO SCH ×3 (08:37→18:42)
[2016-11-28] MEDS: FOLIC ACID 1 MG TABLET PO SCH (08:37)
[2016-11-28] MEDS ORDERED: BUPRENORPHINE HCL 2 MG TAB.SUBL SL SCH (09:00)
[2016-11-28] MEDS ORDERED: LORAZEPAM 1 MG TABLET PO SCH (09:00)
[2016-11-28 12:00] VITALS: BP 108/72
--- NOTE | 2016-11-28 12:00 | NUR ---
Deferred COWS & CIWA Pt is asleep in room so deferred COWS and CIWA. Sitter present. Will cont.to monitor the pt.
--- NOTE | 2016-11-28 13:45 | NUR ---
Medication Non-Administration Pt is room asleep so Gabapentin 600mg HELD. Will cont. to monitor the pt.
[2016-11-28] MEDS: BUPRENORPHINE HCL 2 MG TAB.SUBL SL SCH ×2 (15:00→20:30)
--- NOTE | 2016-11-28 15:15 | NUR ---
PRN Medication Administration Pt is in room drowsy in bed with nausea so PRN Zofran 4mg given SL as ordered. Will reassess in 30 minutes.
[2016-11-28] MEDS: ONDANSETRON ODT 4 MG TAB.RAPDIS SL PRN (15:18)
[2016-11-28 16:00] VITALS: BP 117/80
--- NOTE | 2016-11-28 16:00 | NUR ---
Deferred COWS and CIWA Pt is asleep in room with sitter present, so no COWS and CIWA noted at this time.
--- NOTE | 2016-11-28 16:16 | NUR ---
Reassessment Pt is in room asleep and no s/sx of N/V; Zofran is effective. Will cont. to monitor the pt.
--- NOTE | 2016-11-28 18:10 | NUR ---
Medication Non-Administration Ativan and Subutex Pt is still asleep in bed with sitter present so Ativan 1mg and Subutex 2 mg due at 1700 pm HELD so I notified Dr. Hall, no new orders at this time.
--- NOTE | 2016-11-28 19:27 | NUR ---
End of Shift Report to the night nurse; pt is a 26 y/o female here for Benzo r/t Xanax 2mg qod, Heroin 1.1.5g IV daily, Methamphetamine 2g dialy and GHB 102mg daily; 5 day Ativan taper and 5day Subutex taper. Pt is a full code, NKA, regular diet, fall precautions with sitter for safety r/t risk of falling OOB since pt caught rolling OOB and seizure precautions ordered. HHx: HPV, UTI, Anxiety, Depression, Myiasis, multiple fx's, Multiple relapses. V/S stable. Skin is not intact with multiple lesions from picking at skin. PRN Zofran given once during my shift. Last COWS 0 CIWA 0 and deferred since pt was asleep during the majority of my shift. HELD 1500pm doses of Subutex and Ativan with Dr. Hall notified. No new orders during my shift.
--- NOTE | 2016-11-28 19:27 | NUR ---
START OF SHIFT NOTE: Patient endorsed by outgoing day shift nurse. Report received. Patient is a 26 year old female admitted to [facility] on 11/25/16 for Benzodiazepines, Opioid, Gabapentin and Methamphetamine dependence, continue 5 Day Ativan and 5 day Subutex Taper with tolerated well without ASE. Patient remains compliant with treatment, medications, and diet regime. Patient reports NKA. Patient is Full Code, Regular Diet. Patient is on Fall and Seizures Precautions. Patient denies History of Seizures. Patient is a 1:1 for Safety. PMH: Anxiety, Depression, HPV, UTI, Myiasis, Fx Sternum, Fx T1, Fx Right hand. Substance Abuse, Tobacco dependence. Patient reports is a "third time in Treatment/Detox". Upon endorsement patient is in his Room alert and oriented x 4. Speech is soft and clear. VS: T: 98.4; BP: 115/83; HR: 115; RR: 19; O2 SAT: 100%. Pain level: "0/10". COWS 7, CIWA 6. Patient is anxious and agitated. Patient c/o increased anxiety, nervousness, barely sweating. Respiration s clear and even. Patient denies SOB, cough, and chest pain. Breathing Sounds are clear throughout. Bowel Sounds are active in all four quadrants. Patient denies SI/HI. Skin is not intact with multiple lesion from picking at skin. Skin is warm, and dry to touch. Encouraged fluids as tolerated. Encourage to attend groups activities. All needs met. Safety measures on place. Call light within reach, bed in lowest position and locked, padded rails up bilaterally. Will continue to monitor closely.
[2016-11-28 20:00] VITALS: BP 115/83
[2016-11-28] MEDS: diphenhydrAMINE 50 MG CAPSULE PO PRN (20:30)
--- NOTE | 2016-11-28 20:30 | NUR ---
PRN BENADRYL 50 MG 1 CAP PO ADMINISTRATION. Patient c/o insomnia and asked aid. PRN Benadryl 50 mg 1 cap PO administrated for insomnia with full glass of water as ordered. Patient tolerated well. All needs met. Safety measures on place. Call light within reach, bed in lowest position and locked, padded rails up bilaterally rails up bilaterally. Will continue to monitor closely.
--- NOTE | 2016-11-28 21:30 | NUR ---
RE-ASSESSMENT Patient is sleeping. Respirations even and unlabored. RR:14. PRN Benadryl PO was effective. All needs met. Safety measures on place. Call light within reach, bed in lowest position and locked, padded rails up bilaterally rails up bilaterally. Will continue to monitor closely.
[2016-11-29] VITALS: BP 98/68
[2016-11-29] MEDS ORDERED: TRAZODONE 50 MG TABLET ONE (00:30)
[2016-11-29] MEDS: TRAZODONE 50 MG TABLET PO PRN ×2 (01:30→21:42)
--- NOTE | 2016-11-29 01:30 | NUR ---
PRN TRAZODONE 50 MG 1 TAB PO ADMINISTRATION. Patient c/o insomnia and asked aid. PRN Trazodone 50 mg 1 tab PO administrated for insomnia with full glass of water as ordered. Patient tolerated well. All needs met. Safety measures on place. Call light within reach, bed in lowest position and locked, padded rails up bilaterally rails up bilaterally. Will continue to monitor closely.
--- NOTE | 2016-11-29 02:30 | NUR ---
RE-ASSESSMENT Patient is sleeping. Respirations even and unlabored. RR:15. PRN Trazodone PO was effective. All needs met. Safety measures on place. Call light within reach, bed in lowest position and locked, padded rails up bilaterally rails up bilaterally. Will continue to monitor closely.
[2016-11-29 04:00] VITALS: BP 94/57
--- NOTE | 2016-11-29 06:49 | NUR ---
END OF SHIFT NOTE: Patient endorsed to day shift nurse. Report given. Patient is a 26 year old female admitted to [facility] on 11/25/2016 for Benzodiazepines, Opioid, and Methamphetamine dependence, continue 5 Day Ativan and 5 day Subutex Taper with tolerated well without ASE. Patient remains compliant with treatment, medications, and diet regime. Patient reports NKA. Patient is Full Code, Regular Diet. Patient is on Fall and Seizures Precautions. Patients denies Seizures Hx r/t withdrawal from substances. PMH: Anxiety, Depression, HPV, UTI, Myiasis, Fx Sternum, Fx T1, Fx Right hand. Substance Abuse, Tobacco dependence. Patient reports is a "third time in Treatment/Detox". VS at 0400: T: 98.7; BP: 94/57; HR: 116; RR: 16; O2 SAT: 100%. Pain level: "0/10". Patient is a 1:1 for Safety. Last COWS 6, CIWA 4 at 0400. Patient presented with anxiety, agitation, nervousness, barely sweating, and restlessness. Respirations unlabored and even. Patient denies SOB, cough, and chest pain. Patient denies SI/HI. Skin is not intact with multiple lesion from picking at skin. Skin is warm, and dry to touch. Patient denies SI/HI. PRN Benadryl PO and PRN Trazodone administrated during last freelance digital project manager for insomnia were effective. Patient slept 8 hours, intake 1,546 ml, voided x2. Encourage adequate oral fluid intake as tolerated. Encourage to attend groups activities. All needs met. Safety measures in the place. Call light within reach, bed locked and in the lowest position, padded bed rails up x2.
--- NOTE | 2016-11-29 07:37 | NUR ---
BEGINNING OF SHIFT Patient endorsement report received from orthopaedic surgeon nurse, all pertinent information discussed. Patient with admitting Dx: Opiate/BZO dependence, and substance use of: methamphetamine and GHB Under close observation, Patient with ongoing 5 subutex taper and 5 day ativan taper as ordered, and is schedueld to begin day 3 of taper. patient was administered PRN: Benadryl and trazodone during orthopaedic surgeon, medication was effective as per orthopaedic surgeon, patient slept 08 hours. with last cow score of: 6 and last ciwa score of: 4. Fall and seizure precautions observed and in place. safety measures in place. will continue to monitor closely. Patient received in room, alert and oriented x4, educated regarding plan of care for the day and medication regimen with good verbal understanding. Will continue to monitor.
[2016-11-29 09:11] VITALS: BP 108/69
[2016-11-29] MEDS: MULTIVITAMINS,THERAPEUTIC TABLET PO SCH (09:14)
[2016-11-29] MEDS: THIAMINE HCL 100 MG TABLET PO SCH (09:14)
[2016-11-29] MEDS: FOLIC ACID 1 MG TABLET PO SCH (09:14)
[2016-11-29] MEDS: buPROPion XL 150 MG TAB.SR.24H PO SCH (09:15)
[2016-11-29] MEDS: GABAPENTIN 300 MG CAPSULE PO SCH ×3 (09:15→17:00)
[2016-11-29] MEDS: LORAZEPAM 1 MG TABLET PO SCH ×2 (09:15→20:10)
[2016-11-29] MEDS: BUPRENORPHINE HCL 2 MG TAB.SUBL SL SCH ×3 (09:15→20:11)
[2016-11-29] MEDS: IBUPROFEN 400 MG TABLET PO PRN (10:17)
--- NOTE | 2016-11-29 10:17 | NUR ---
PRN MOTRIN patient c/o pain 6/10 provided with non pharmacological interventions with no relief, administered Motrin as ordered, will monitor effectiveness.
--- NOTE | 2016-11-29 10:26 | NUR ---
ENDORSED CARE Patient endorsement report given to nurse, all pertinent information discussed.
--- NOTE | 2016-11-29 10:27 | NUR ---
ENDORSEMENT RECEIVED Received report from nurse to continue with care. Pt remains on 1:1 for safety precautions. Will continue to monitor.
[2016-11-29 12:45] VITALS: BP 99/61
--- NOTE | 2016-11-29 12:45 | NUR ---
COWS ASSESSMENT DEFERRED Pt is observed too sedative. Pt is arousable to touch. Respirations are even and unlabored. VS are WNL. Pt remains on 1:1 for safety precautions. Will continue to monitor. Addendum: 11/29/16 at 1318 by LUIS FELIPE JORDAN LVN Amended: Links added.
--- NOTE | 2016-11-29 12:59 | NUR ---
MEDICATION HELD Gabapentin 600mg as scheduled was held due to pt is too sedative. Pt is arousable to touch. VS are WNL. Pt remains on 1:1 for safety measures. Will continue to monitor.
[2016-11-29 16:00] VITALS: BP 106/66
--- NOTE | 2016-11-29 17:09 | NUR ---
Pt refused to take Gabapentin 600mg PO as scheduled at 1700. Pt states, "it's makes me depressed". Pt was educated on medication regimen. Pt needs further education. Will continue to monitor.
--- NOTE | 2016-11-29 18:50 | NUR ---
START OF SHIFT NOTE: Patient endorsed by outgoing day shift nurse. Report received. Patient is a 26 year old female admitted to [facility] on 11/25/16 for Benzodiazepines, Opioid, and Methamphetamine dependence, continue 5 Day Ativan and 5 day Subutex Taper with tolerated well without ASE. Patient remains compliant with treatment, medications, and diet regime. Patient reports NKA. Patient is Full Code, Regular Diet. Patient is on Fall and Seizures Precautions. Patients denies Seizures Hx r/t withdrawal from substances. Patient is a 1:1 for Safety. PMH: Anxiety, Depression, HPV, UTI, Myiasis, Fx Sternum, Fx T1, Fx Right hand. Substance Abuse, Tobacco dependence. Patient reports is a "third time in Treatment/Detox". Upon endorsement patient is inside the Room alert and oriented x 4. Speech is soft and clear. VS: T: 97.9; BP: 97/67; HR: 106; RR: 19; O2 SAT: 100%. Pain level: "0/10". COWS 7, CIWA 8. Patient is anxious and agitated. Patient c/o increased anxiety, nervousness, nausea, barely sweating. Respiration s clear and even. Patient denies SOB, cough, and chest pain. Breathing Sounds are clear throughout. Bowel Sounds are active in all four quadrants. Patient denies SI/HI. Skin is not intact with multiple lesion from picking at skin. Skin is warm, and dry to touch. Encouraged fluids as tolerated. Encourage to attend groups activities. All needs met. Safety measures on place. Call light within reach, bed in lowest position and locked, padded rails up bilaterally. Will continue to monitor closely.
--- NOTE | 2016-11-29 18:50 | NUR ---
END OF SHIFT Pt is a 26 yr old female, A&Ox3. Pt was admitted on 11/25/16 for Benzo/Opiate dependence and is on 5 day Subutex and 5 day Ativan taper as ordered. Medication omar well. Pt received Motrin PRN in the morning. Medication was effective. Pt remains on 1:1 for unsteady gait. No fall noted. Pt was encouraged to attend group session but pt was too sedative. Neurontin was held at 1300 and refused at 1700. Last COWS score was 4 and CIWA score was 1 at 1600. Skin is intact, warm and dry to touch. No tremors seen or felt. Encouraged increase fluid intake. Safety precautions are observed. Call light is within reach.
[2016-11-29] MEDS: ONDANSETRON ODT 4 MG TAB.RAPDIS SL PRN (19:07)
--- NOTE | 2016-11-29 19:07 | NUR ---
PRN ZOFRAN 4 MG 1TAB. RAPDIS SL ADMINISTRATION. Patient c/o nausea and asked aid. PRN Zofran 4 mg 1 tab. Rapdis SL administrated as ordered. Patient tolerated well. All needs met. Safety measures on place. Call light within reach, bed in lowest position and locked, padded rails up bilaterally rails up bilaterally. Will continue to monitor closely.
[2016-11-29 20:00] VITALS: BP 98/62
--- NOTE | 2016-11-29 20:07 | NUR ---
RE-ASSESSMENT Patient denies N/V. PRN Zofran 4 mg 1 tab. Rapdis SL was effective. All needs met. Safety measures on place. Call light within reach, bed in lowest position and locked, padded rails up bilaterally rails up bilaterally. Will continue to monitor closely.
[2016-11-29] MEDS: QUETIAPINE FUMARATE 25 MG TABLET PO SCH ×2 (20:11→20:22)
[2016-11-29] MEDS: LEVOFLOXACIN 750 MG TABLET PO SCH (20:11)
[2016-11-29] MEDS: LACTOBACILLUS RHAMNOSUS GG 1 EACH CAPSULE PO SCH (20:11)
--- NOTE | 2016-11-29 20:11 | NUR ---
PATIENT REFUSED ORDERED MEDICATIONS: SEROQUEL PO AND GABAPENTIN PO. CHARGE NURSE NOTIFIED.
[2016-11-29 20:19] LABS: CREATININE 0.6 mg/dL (0.6-1.3); MAGNESIUM 1.7 mg/dL (1.8-2.4); POTASSIUM 3.9 mmol/L (3.5-5.1)
[2016-11-29 20:30] LABS: BASOPHILS # (AUTO) 0.1 K/uL (0.0-8.0); BASOPHILS % (AUTO) 0.5 % (0.0-2.0); EOSINOPHILS # (AUTO) 0.6 K/uL (0.0-0.7); EOSINOPHILS % (AUTO) 6.3 % (0.0-7.0); HEMATOCRIT 35.8 % (37-47); HEMOGLOBIN 11.9 G/DL (12.0-16.0); LYMPHOCYTES # (AUTO) 2.3 K/UL (0.8-4.8); LYMPHOCYTES % (AUTO) 23.1 % (20.5-51.5); MEAN CORPUSCULAR HEMOGLOBIN 30.6 UUG (27.0-31.0); MEAN CORPUSCULAR HGB CONC 33 g/dL (32.0-37.0); MEAN CORPUSCULAR VOLUME 91.6 FL (81.0-99.0); MONOCYTES # (AUTO) 1.6 K/UL (0.1-1.30); MONOCYTES % (AUTO) 16.3 % (0.0-11.0); NEUTROPHILS # (AUTO) 5.5 K/UL (1.8-8.9); NEUTROPHILS % (AUTO) 53.8 % (38.5-71.5); PLATELET COUNT (AUTO) 377 K/UL (150-450); RED BLOOD CELL COUNT(AUTO) 3.91 MIL/UL (4.2-5.4); WHITE BLOOD COUNT (AUTO) 10.1 K/UL (4.0-11.2)
[2016-11-29] MEDS: GABAPENTIN 400 MG CAPSULE PO SCH (21:00)
[2016-11-29] MEDS ORDERED: MAGNESIUM OXIDE 400 MG TABLET PO ONE (21:30)
[2016-11-29] MEDS: MAG HYDROX/AL HYDROX/SIMETH 30 ML LIQUID UDC PO PRN (21:42)
[2016-11-29] MEDS: MAGNESIUM HYDROXIDE 30 ML LIQUID UDC PO PRN (21:43)
--- NOTE | 2016-11-29 21:43 | NUR ---
PRN TRAZODONE 50 MG 1 TAB PO, MILK OF MAGNESIA 30 ML PO AND PRN MAALOX SUSPENSION 30 ML PO ADMINISTRATION. Patient c/o insomnia, constipation and heartburn. PRN Trazodone 50 mg 1 tab PO, PRN Milk of Magnesia 30 ml PO, and PRN Maalox Suspension 30 ml PO administrated with full glass of water as ordered. Patient tolerated well. All needs met. Safety measures on place. Call light within reach, bed in lowest position and locked, padded rails up bilaterally rails up bilaterally. Will continue to monitor closely.
[2016-11-29] MEDS ORDERED: MAGNESIUM OXIDE 400 MG TABLET ONE (21:53)
--- NOTE | 2016-11-29 22:43 | NUR ---
RE-ASSESSMENT Patient is sleeping. Respirations even and unlabored. RR:14. PRN Trazodone PO, PRN Milk of Magnesia PO, and PRN Maalox Suspension PO were effective. All needs met. Safety measures on place. Call light within reach, bed in lowest position and locked, padded rails up bilaterally rails up bilaterally. 1:1 sitter for Safety at bedside with patient . Will continue to monitor closely.
[2016-11-29] MEDS: ONDANSETRON 4 MG/2 ML VIAL IM PRN (23:14)
--- NOTE | 2016-11-29 23:14 | NUR ---
PRN ZOFRAN 4 MG 2 ML IM ADMINISTRATION. Patient c/o nausea and vomiting, and asked aid. PRN Zofran 4 mg 2 ml IM to Right Upper DM administrated as ordered. Doctor Chidi Aguilar MD aware. Patient tolerated well. All needs met. Safety measures on place. Call light within reach, bed in lowest position and locked, padded rails up bilaterally rails up bilaterally. Will continue to monitor closely.
--- NOTE | 2016-11-29 23:44 | NUR ---
RE-ASSESSMENT Patient is sleeping. Respirations even and unlabored. RR:14. PRN Zofran 4 mg 2 ml IM was effective. All needs met. Safety measures on place. Call light within reach, bed in lowest position and locked, padded rails up bilaterally rails up bilaterally. 1:1 sitter for Safety at bedside. Will continue to monitor closely.
[2016-11-30] VITALS: BP 100/70
[2016-11-30] MEDS: HYDROXYZINE PAMOATE 25 MG CAPSULE PO PRN (02:38)
[2016-11-30] MEDS: METHOCARBAMOL 750 MG TABLET PO PRN (02:39)
--- NOTE | 2016-11-30 02:39 | NUR ---
PRN ROBAXIN 750 MG 1 TAB PO AND PRN VISTARIL 50 MG 2 CAP PO ADMINISTRATION. Patient c/o myalgia and increased anxiety. PRN Robaxin 750 mg 1 tab PO for myalgia and PRN Vistaril 50 mg 2 cap PO for anxiety administrated with full glass of water as ordered. Patient tolerated well. All needs met. Safety measures on place. Call light within reach, bed in lowest position and locked, padded rails up bilaterally rails up bilaterally. 1:1 sitter at bedside for patient Safety. Will continue to monitor closely.
--- NOTE | 2016-11-30 03:39 | NUR ---
RE-ASSESSMENT Patient is sleeping. Respirations even and unlabored. RR:16. PRN Robaxin PO and PRN Vistaril PO were effective. All needs met. Safety measures on place. Call light within reach, bed in lowest position and locked, padded rails up bilaterally rails up bilaterally. 1:1 sitter at bedside for Safety. Will continue to monitor closely.
[2016-11-30 04:00] VITALS: BP 99/63
--- NOTE | 2016-11-30 07:05 | NUR ---
END OF SHIFT NOTE: Patient endorsed to day shift nurse. Report given. Patient is a 26 year old female admitted to [facility] on 11/25/16 for Benzodiazepines, Opioid, and Methamphetamine dependence, continue 5 Day Ativan and 5 day Subutex Taper with tolerated well without ASE. Patient remains compliant with treatment, medications, and diet regime. Patient reports NKA. Patient is Full Code, Regular Diet. Patient is on Fall and Seizures Precautions. Patients denies Seizures Hx r/t withdrawal from substances. Patient is a 1:1 for Safety. Last VS at 0400: T: 98.1; BP: 99/63; HR: 106; RR: 14; O2 SAT: 96%. Pain level: "0/10". Last COWS 7, CIWA 4 at 0400. Last night shift supervisor patient presented with anxiety, agitation, nervousness, N/V. barely sweating, yawning, tremors that can be felt, tachycardia, insomnia, and restlessness. Respirations unlabored and even. Patient denies SOB, cough, and chest pain. Patient denies SI/HI. Skin is warm, and dry to touch. Skin is not intact with multiple lesion from picking at skin. Patient denies SI/HI. Patient refused scheduled medications for 1999: Seroquel PO and Gabapentin PO. PRN Zofran RAPDIS SL, PRN Trazodone PO, PRN Maalox Suspension PO, PRN Milk of Magnesia PO, PRN Zofran IM, PRN Vistaril PO, PRN Robaxin PO administrated last night shift supervisor to patient were effective. Patient slept 8 hours, intake 2,730 ml, voided x5. Encourage adequate oral fluid intake as tolerated. Encourage to attend groups activities. All needs met. Safety measures in the place. Call light within reach, bed locked and in the lowest position, padded bed rails up x2.
--- NOTE | 2016-11-30 07:50 | NUR ---
Start of shift note; Received report from night nurse. Patient is a 26 year old female admitted on 11/25/16 for Benzo, Opiate dependence. Patient was placed on 5 day Ativan and 5 day Subutex tapers, no adverse reactions noted. Patient is on full code status, on regular diet , NKA. Patient is on fall and seizure precaution. Bed in lowest position, call light within reach. Patient remained on 1:1 supervision for safety. Will continue to monitor patient.
[2016-11-30 08:00] VITALS: BP 109/60
[2016-11-30] MEDS: MULTIVITAMINS,THERAPEUTIC TABLET PO SCH (08:35)
[2016-11-30] MEDS: FOLIC ACID 1 MG TABLET PO SCH (08:35)
[2016-11-30] MEDS: THIAMINE HCL 100 MG TABLET PO SCH (08:35)
[2016-11-30] MEDS: GABAPENTIN 400 MG CAPSULE PO SCH ×3 (08:35→21:24)
[2016-11-30] MEDS: buPROPion XL 150 MG TAB.SR.24H PO SCH (08:35)
[2016-11-30] MEDS ORDERED: BUPRENORPHINE HCL 2 MG TAB.SUBL SL SCH (09:00)
[2016-11-30] MEDS ORDERED: LORAZEPAM 1 MG TABLET PO SCH (09:00)
--- NOTE | 2016-11-30 10:50 | NUR ---
MD communication; MD approved to clear patient off 1:1 supervision, patient is AOX4 and able to walk steadily. Will closely monitor patient.
[2016-11-30 12:00] VITALS: BP 108/63
--- NOTE | 2016-11-30 15:11 | NUR ---
Patient communication; Patient refused 1500 medication, patient also refused to provide urine sample for discharge, educated patient regarding importance of compliance to medication and importance of providing UA for UDS. Patient verbalized understanding. Addendum: 11/30/16 at 1520 by CIARAN CARRASCO LVN Patient started to become anxious after educating patient. Patient stated " leave me alone , i do not want to be bothered at this time, leave me alone". Redirected patient. Safety measures secured.
[2016-11-30] MEDS ORDERED: TRAZODONE 50 MG TABLET PO PRN (15:30)
[2016-11-30 16:00] VITALS: BP 98/70
[2016-11-30] MEDS: ONDANSETRON ODT 4 MG TAB.RAPDIS SL PRN (17:19)
--- NOTE | 2016-11-30 17:19 | NUR ---
PRN medication; Patient is complaining of nausea with 1 episode of emesis. PRN Zofran 4mg ODT given to prevent further N/V. Will continue to monitor patient for effectiveness of medication.
--- NOTE | 2016-11-30 18:19 | NUR ---
Re-assessment and PRN medication; Patient denies further emesis but stated still feeling nauseous and complaining of heartburn. PRN Maalox given for heartburn. Will continue to monitor patient.
[2016-11-30] MEDS: MAG HYDROX/AL HYDROX/SIMETH 30 ML LIQUID UDC PO PRN (18:24)
--- NOTE | 2016-11-30 18:32 | NUR ---
End of shift note; Patient is AOX4. Patient is a 26 year old female admitted on 11/25/16 for Benzo, Opiate dependence. Patient was placed on 5 day Ativan and 5 day Subutex tapers, no adverse reactions noted. Patient is on full code status, on regular diet , NKA. Patient is on fall and seizure precaution. Patient is non-compliant with treatment plan. All safety measures secured. Met all needs.
[2016-11-30 18:39] LABS: *AMPHETAMINE, URINE NEGATIVE (NEGATIVE); *BARBITURATE, URINE NEGATIVE (NEGATIVE); *CANNABINOID, URINE NEGATIVE (NEGATIVE); *COCCAINE, URINE NEGATIVE (NEGATIVE); *OPIATE, URINE NEGATIVE (NEGATIVE); *PHENCYCLIDINE SCREEN,URINE NEGATIVE (NEGATIVE)
--- NOTE | 2016-11-30 19:10 | NUR ---
Re-assessment; Patient denies heartburn. PRN Maalox is effective.
[2016-11-30 20:00] VITALS: BP 101/58
[2016-11-30] MEDS ORDERED: IBUPROFEN 600 MG TABLET PO PRN (20:00)
--- NOTE | 2016-11-30 20:00 | NUR ---
START OF SHIFT NOTE PATIENT IN HER ROOM. PATIENT STATES SHE'S NAUSEATED AND VOMITED "QUITE A FEW". PATIENT NOTED IRRITABLE. PATIENT NOTED EATING SNACKS AND DRINKING FLUIDS. RECEIVED REPORT FROM DAY SHIFT NURSE. PATIENT IS A 26 YEAR OLD FEMALE FOR BENZO/OPIATE DEPENDENCE. PATIENT COMPLETED 5 DAY ATIVAN AND 5 DAY SUBUTEX TAPER. PATIENT IS MEDICALLY CLEARED TO BE DISCHARGE TOMORROW. PATIENT ALLERGIC TO SEROQUEL. PATIENT REPORTS PMH OF HPV,UTI,ANXIETY,DEPRESSION, MYIASIS, FX OF STERNUM, T1 AND RIGHT HAND. NO SEIZURE HISTORY. PATIENT WAS GIVEN PRN ZOFRAN PO DUE TO ONE TIME VOMITING AND PRN MAALOX. LAST COWS 3 AND CIWA 3. ON FALL/SEIZURE PRECAUTION. SAFETY MEASURES IN PLACE. CALL LIGHT IN REACH. WILL CONTINUE TO MONITOR.
[2016-11-30] MEDS ORDERED: TRAZ-144 PO (20:38)
[2016-11-30] MEDS ORDERED: DICY20TA28 PO (20:38)
[2016-11-30] MEDS ORDERED: GABA-536 PO (20:38)
[2016-11-30] MEDS ORDERED: BACL20TA PO (20:38)
[2016-11-30] MEDS ORDERED: LACT1CAP57 PO (20:38)
[2016-11-30] MEDS ORDERED: BUPR-96 PO (20:38)
[2016-11-30] MEDS ORDERED: HYDR-3895 PO (20:38)
[2016-11-30] MEDS ORDERED: ONDA4TAB11 SL (20:38)
[2016-11-30] MEDS ORDERED: IBUP-1955 PO (20:38)
[2016-11-30] MEDS ORDERED: LEVO750T21 PO (20:38)
[2016-11-30] MEDS ORDERED: QUETIAPINE FUMARATE 25 MG TABLET PO SCH (21:00)
[2016-11-30] MEDS: BACLOFEN 20 MG TABLET PO SCH (21:24)
[2016-11-30] MEDS: LEVOFLOXACIN 750 MG TABLET PO SCH (21:24)
[2016-11-30] MEDS: LACTOBACILLUS RHAMNOSUS GG 1 EACH CAPSULE PO SCH (21:24)
[2016-11-30] MEDS: ONDANSETRON 4 MG/2 ML VIAL IM PRN (21:36)
--- NOTE | 2016-11-30 21:36 | NUR ---
PRN ZOFRAN INJECTION ADMINISTRATION PATIENT WAS GIVEN ZOFRAN INJECTION DUE TO N/V. WILL MONITOR FOR EFFECTIVENESS
--- NOTE | 2016-11-30 22:06 | NUR ---
PRN KASHMIR RE-ASSESSMENT N/V CEASED. KASHMIR HELPFUL SHE STATES. WILL CONTINUE TO MONITOR.
[2016-12-01] MEDS: HYDROXYZINE PAMOATE 25 MG CAPSULE PO PRN (03:17)
--- NOTE | 2016-12-01 03:17 | NUR ---
PRN DESYREL AND VISTARIL ADMINISTRATION PATIENT C/O UNABLE TO SLEEP AND C/O ANXIETY. PRN DESYREL AND VISTARIL GIVEN. WILL MONITOR FOR EFFECTIVENESS
[2016-12-01 04:00] VITALS: BP 95/56
--- NOTE | 2016-12-01 04:17 | NUR ---
PRN NIKKIE AND ROSA MTARIL RE-ASSESSMENT PATIENT IN BED WITH EYES CLOSED. NO S/S OF DISTRESS. RESPIRATION EVEN AND UNLABORED. SAFETY MEASURES IN PLACE. CALL LIGHT IN REACH. WILL CONTINUE TO MONITOR.
--- NOTE | 2016-12-01 07:02 | NUR ---
END OF SHIFT NOTE PATIENT IS A 26 YEAR OLD FEMALE FOR BENZO/OPIATE DEPENDENCE. PATIENT COMPLETED 5 DAY ATIVAN AND 5 DAY SUBUTEX TAPER, TOLERATED, NO ADVERSE REACTION. PATIENT IS MEDICALLY CLEARED TO BE DISCHARGE TOMORROW PATIENT STATES SHE WAS NAUSEATED AND VOMITED "QUITE A FEW" , PATIENT NOTED IRRITABLE BUT NOTED EATING SNACKS AND DRINKING FLUIDS BEGINNING OF SHIFT. IS MEDICALLY CLEARED TO BE DISCHARGE TODAY. PATIENT ALLERGIC TO SEROQUEL. PATIENT WAS GIVEN PRN ZOFRAN IM AT 2135, HELPFUL AND EFFECTIVE. N/V CEASED. AT 316, PATIENT REQUESTED VISTARIL DUR TO ANXIETY AND TRAZADONE FOR SLEEP. ON FALL/SEIZURE PRECAUTION. SAFETY MEASURES IN PLACE. CALL LIGHT IN REACH. WILL CONTINUE TO MONITOR. SLEPT 9 HOURS. FLUID INTAKE 1,769 ML. VOIDED X 3 . NO BM. LAST COWS 2 AND CIWA 0.
--- NOTE | 2016-12-01 07:36 | NUR ---
START OF SHIFT NOTE: Received report from night court magistrate nurse. Patient is a 26 year old female admitted on 11/25/16 for Opiate, Benzo and meth dependence. Tapers completed. To be discharged this AM. Pt is alert and oriented X4. Color good, skin warm and dry. Respirations even and unlabored. Resting in bed. Safety precautions observed. Call light within reach.
[2016-12-01] MEDS: GABAPENTIN 400 MG CAPSULE PO SCH (08:14)
[2016-12-01] MEDS: THIAMINE HCL 100 MG TABLET PO SCH (08:14)
[2016-12-01] MEDS: BACLOFEN 20 MG TABLET PO SCH (08:14)
[2016-12-01] MEDS: buPROPion XL 150 MG TAB.SR.24H PO SCH (08:14)
[2016-12-01] MEDS: FOLIC ACID 1 MG TABLET PO SCH (08:14)
[2016-12-01] MEDS: MULTIVITAMINS,THERAPEUTIC TABLET PO SCH (08:14)
[2016-12-01 08:30] VITALS: BP 98/66
--- NOTE | 2016-12-01 08:30 | NUR ---
Discharge papers and medication bags signed. VSS
--- NOTE | 2016-12-01 08:55 | NUR ---
Pt discharged in stable condition with all valuables, belongings and home medications. Denies HI/SI. To the [facility] via [facility] private car.
== END 2016-12-01 08:55 | DRG 895 ==
LOC: SRC 21:30
PROVIDERS: ADMIT Internal Medicine; ATTEND Internal Medicine
PROC: HZ2ZZZZ Detoxification Services for Substance Abuse Treatment (ICD-10-PCS; principal; 2016-11-25)
PROC: HZ31ZZZ Individual Counseling for Substance Abuse Treatment, Behavioral (ICD-10-PCS; 2016-11-27)
DX: F11.23 Opioid dependence with withdrawal (principal); J18.9 Pneumonia, unspecified organism; F33.2 Major depressive disorder, recurrent severe without psychotic features; F19.10 Other psychoactive substance abuse, uncomplicated; F13.230 Sedative, hypnotic or anxiolytic dependence with withdrawal, uncomplicated; Z59.1 Inadequate housing; Z59.0 Homelessness; Z91.19 Patient's noncompliance with other medical treatment and regimen; F17.210 Nicotine dependence, cigarettes, uncomplicated; F15.10 Other stimulant abuse, uncomplicated; F12.90 Cannabis use, unspecified, uncomplicated
CPT/HCPCS: 36415; 71010; 80307; 80324; 80346; 80349; 80361; 83690; 83735; 84443; 84703; 85025; 86140; 86580; 86592; 86705; 86803; 87040; 87340; 87806; G0480; J2405; Q0162; Q0163

== ENCOUNTER 2017-08-07 21:58 | Inpatient (IN) | payer OTHER, MEDICAID ==
[~2017-08-07] VITALS: Ht 160 cm; Wt 52.2 kg
[~2017-08-07 21:58] MED LIST changes: -Amoxicillin-Clav 500-125MG Tab PO; -BACL10TA PO; +BACL20TA PO; +BUPR-96 PO; -GABA-534 PO; +GABA-536 PO; -IBUP-1953 PO; +IBUP-1955 PO; +LACT1CAP57 PO; +LEVO750T21 PO; -MELA1TAB2 PO; -METH750T3 PO; -MICO45CR12 VG; -MUPI22OI2 NS; +ONDA4TAB11 SL; -SULF1TAB3 PO; -TETR-55 OP; +TRAZ-144 PO
[2017-08-07] MEDS ORDERED: BUPRENORPHINE HCL 2 MG TAB.SUBL SL PRN (22:45)
[2017-08-07] MEDS ORDERED: LORAZEPAM 1 MG TABLET PO PRN (22:45)
[2017-08-07] MEDS ORDERED: MAGNESIUM HYDROXIDE 30 ML LIQUID UDC PO PRN (22:45)
[2017-08-07] MEDS ORDERED: MIRALAX 17 GM POWD.PACK PO PRN (22:45)
[2017-08-07] MEDS ORDERED: diphenhydrAMINE 50 MG CAPSULE PO PRN (22:45)
[2017-08-07] MEDS ORDERED: LOPERAMIDE HCL 2 MG CAPSULE PO PRN ×2 (22:45)
[2017-08-07] MEDS ORDERED: MAG HYDROX/AL HYDROX/SIMETH 30 ML LIQUID UDC PO PRN (22:45)
[2017-08-07] MEDS ORDERED: ACETAMINOPHEN 325 MG TABLET PO PRN (22:45)
[2017-08-07] MEDS ORDERED: LORAZEPAM 2 MG/1 ML VIAL IM PRN (22:45)
[2017-08-07] MEDS ORDERED: CLONIDINE HCL 0.1 MG TABLET PO PRN (22:45)
[2017-08-07] MEDS ORDERED: DICYCLOMINE HCL 20 MG TABLET PO PRN (22:45)
[2017-08-07] MEDS ORDERED: ONDANSETRON 4 MG/2 ML VIAL IM PRN (22:45)
[2017-08-07] MEDS ORDERED: LORAZEPAM 1 MG TABLET PO SCH (23:30)
[2017-08-08] VITALS: BP 136/92
[2017-08-08 00:39] LABS: BASOPHILS # (AUTO) 0.1 K/uL (0.0-8.0); BASOPHILS % (AUTO) 0.6 % (0.0-2.0); EOSINOPHILS % (AUTO) 0.5 % (0.0-7.0); HEMATOCRIT 34.2 % (31.2-41.9); HEMOGLOBIN 12.2 g/dL (10.9-14.3); LYMPHOCYTES # (AUTO) 2.9 K/uL (20.0-40.0); LYMPHOCYTES % (AUTO) 34.8 % (20.5-51.5); MEAN CORPUSCULAR HEMOGLOBIN 32.2 uug (24.7-32.8); MEAN CORPUSCULAR HGB CONC 36 g/dL (32.3-35.6); MEAN CORPUSCULAR VOLUME 90.4 fL (75.5-95.3); MONOCYTES % (AUTO) 12.6 % (0.0-11.0); NEUTROPHILS # (AUTO) 4.3 K/uL (1.8-8.9); NEUTROPHILS % (AUTO) 51.5 % (38.5-71.5); PLATELET COUNT (AUTO) 429 K/uL (179-408); RED BLOOD CELL COUNT(AUTO) 3.78 MIL/uL (3.63-4.92); WHITE BLOOD COUNT (AUTO) 8.3 K/uL (3.8-11.8)
[2017-08-08] MEDS: IBUPROFEN 600 MG TABLET PO PRN (00:47)
[2017-08-08 00:50] LABS: ALANINE AMINOTRANSFERASE 26 U/L (14-59); ALKALINE PHOSPHATASE 66 U/L (50-136); ASPARTATE AMINOTRANSFERASE 20 U/L (15-37); BILIRUBIN,TOTAL 0.8 mg/dL (0.2-1.0); CARBON DIOXIDE 20 mmol/L (21-32); CHLORIDE 103 mmol/L (98-107); CREATININE 0.8 mg/dL (0.6-1.3); GLUCOSE 100 mg/dL (74-106); MAGNESIUM 1.7 mg/dL (1.8-2.4); POTASSIUM 3.6 mmol/L (3.5-5.1); TOTAL PROTEIN, SERUM 7.4 g/dL (6.4-8.2); UREA NITROGEN, BLOOD 8 mg/dL (7-18)
[2017-08-08 01:01] LABS: ETHANOL < 3 MG/DL (0-0)
[2017-08-08 01:02] LABS: *URINE HCG, QUAL NEGATIVE (NEGATIVE)
[2017-08-08 01:09] LABS: *AMPHETAMINE, URINE POSITIVE (NEGATIVE); *BARBITURATE, URINE NEGATIVE (NEGATIVE); *CANNABINOID, URINE POSITIVE (NEGATIVE); *COCCAINE, URINE NEGATIVE (NEGATIVE); *OPIATE, URINE NEGATIVE (NEGATIVE); *PHENCYCLIDINE SCREEN,URINE NEGATIVE (NEGATIVE)
[2017-08-08] MEDS ORDERED: MAGNESIUM OXIDE 400 MG TABLET PO ONE (01:45)
[2017-08-08] MEDS: LORAZEPAM 1 MG TABLET PO PRN ×3 (01:51→08:13)
[2017-08-08 04:00] VITALS: BP 104/62
[2017-08-08] MEDS ORDERED: TOPI50TA24 PO (05:11)
[2017-08-08] MEDS ORDERED: ONDA8TAB6 PO (05:11)
[2017-08-08] MEDS ORDERED: ALBU18HF2 IH (05:11)
[2017-08-08] MEDS ORDERED: BUPR300T54 PO (05:11)
[2017-08-08] MEDS ORDERED: TRIA15CR2 TP (05:11)
[2017-08-08 08:00] VITALS: BP 143/62
[2017-08-08] MEDS: GABAPENTIN 400 MG CAPSULE PO SCH ×3 (08:14→22:16)
[2017-08-08] MEDS ORDERED: TUBERCULIN,PURIF.PROT.DERIV. 5 TU/0.1 ML TEST ID ONE (09:00)
[2017-08-08] MEDS ORDERED: [UNRECOGNIZED DRUG - OTHER] INH PRN (09:30)
[2017-08-08] MEDS ORDERED: ALBUTEROL INH PRN (09:30)
[2017-08-08 12:00] VITALS: BP 110/43
[2017-08-08 16:30] VITALS: BP 107/82
[2017-08-08] MEDS ORDERED: TRAZODONE 50 MG TABLET PO PRN (17:15)
[2017-08-08 20:00] VITALS: BP 94/55
[2017-08-08] MEDS: QUETIAPINE FUMARATE 25 MG TABLET PO SCH (22:16)
[2017-08-09] VITALS: BP 85/44
[2017-08-09 04:00] VITALS: BP 94/59
[2017-08-09 08:00] VITALS: BP 106/58
[2017-08-09] MEDS ORDERED: TUBERCULIN,PURIF.PROT.DERIV. 5 TU/0.1 ML TEST ID ONE (09:00)
[2017-08-09] MEDS ORDERED: HYDROXYZINE PAMOATE 25 MG CAPSULE PO PRN (09:00)
[2017-08-09] MEDS: GABAPENTIN 400 MG CAPSULE PO SCH ×3 (09:12→21:10)
[2017-08-09] MEDS: METHOCARBAMOL 750 MG TABLET PO PRN (11:07)
[2017-08-09] MEDS: HYDROXYZINE PAMOATE 25 MG CAPSULE PO PRN (11:07)
[2017-08-09] MEDS: IBUPROFEN 600 MG TABLET PO PRN (11:07)
[2017-08-09 12:00] VITALS: BP 99/62
[2017-08-09] MEDS ORDERED: KETOROLAC TROMETHAMINE 30 MG INJ IM PRN (13:00)
[2017-08-09] MEDS ORDERED: BUPRENORPHINE HCL 2 MG TAB.SUBL SL SCH (13:00)
[2017-08-09] MEDS ORDERED: LORAZEPAM 1 MG TABLET PO SCH (13:00)
[2017-08-09 15:11] LABS: HEPATITIS B SURFACE AG Negative (Negative)
[2017-08-09 16:00] VITALS: BP 100/63
[2017-08-09] MEDS: LORAZEPAM 1 MG TABLET PO SCH ×2 (16:51→21:10)
[2017-08-09] MEDS: BUPRENORPHINE HCL 2 MG TAB.SUBL SL SCH ×2 (16:51→21:16)
[2017-08-09 18:51] LABS: CREATININE 0.7 mg/dL (0.6-1.3)
[2017-08-09] MEDS: ONDANSETRON ODT 4 MG TAB.RAPDIS SL PRN (19:51)
[2017-08-09 20:00] VITALS: BP 97/65
[2017-08-09] MEDS: QUETIAPINE FUMARATE 25 MG TABLET PO SCH ×2 (21:00→21:11)
[2017-08-09] MEDS: CLONIDINE HCL 0.1 MG TABLET PO SCH ×2 (21:00→21:11)
[2017-08-09] MEDS: TOPIRAMATE 25 MG TABLET PO SCH (21:11)
[2017-08-10] VITALS: BP 90/54
[2017-08-10 08:08] VITALS: BP 92/47
[2017-08-10] MEDS ORDERED: LORAZEPAM 1 MG TABLET PO SCH (09:00)
[2017-08-10] MEDS: GABAPENTIN 400 MG CAPSULE PO SCH ×3 (09:00→21:00)
[2017-08-10] MEDS: TOPIRAMATE 25 MG TABLET PO SCH ×2 (09:00→22:04)
[2017-08-10] MEDS ORDERED: BUPRENORPHINE HCL 2 MG TAB.SUBL SL SCH (09:00)
[2017-08-10] MEDS: CLONIDINE HCL 0.1 MG TABLET PO SCH ×2 (09:00→21:00)
[2017-08-10 12:00] VITALS: BP 98/56
[2017-08-10] MEDS ORDERED: IV NS 1000 ML 1,000 ML IV ONE (13:00)
[2017-08-10] MEDS ORDERED: IV NS 1000 ML 1,000 ML IV PRN (14:00)
[2017-08-10] MEDS ORDERED: CLON0.1T14 PO (14:04)
[2017-08-10] MEDS ORDERED: DICY20TA28 PO (14:04)
[2017-08-10] MEDS ORDERED: TOPI25TA PO ×2 (14:04)
[2017-08-10] MEDS ORDERED: METH-406 PO (14:04)
[2017-08-10] MEDS ORDERED: HYDR-3895 PO (14:04)
[2017-08-10] MEDS ORDERED: GABA-536 PO (14:04)
[2017-08-10] MEDS ORDERED: IBUP-1955 PO (14:04)
[2017-08-10 16:00] VITALS: BP 108/58
[2017-08-10 20:00] VITALS: BP 96/62
[2017-08-10] MEDS: QUETIAPINE FUMARATE 25 MG TABLET PO SCH (21:00)
[2017-08-11] VITALS: BP 90/55
[2017-08-11] MEDS: HYDROXYZINE PAMOATE 25 MG CAPSULE PO PRN (03:17)
[2017-08-11] MEDS: ONDANSETRON ODT 4 MG TAB.RAPDIS SL PRN (03:58)
[2017-08-11 04:00] VITALS: BP 95/52
[2017-08-11 08:00] VITALS: BP 100/60
[2017-08-11] MEDS: METHOCARBAMOL 750 MG TABLET PO PRN (08:17)
[2017-08-11] MEDS: TOPIRAMATE 25 MG TABLET PO SCH (08:18)
[2017-08-11] MEDS: IBUPROFEN 600 MG TABLET PO PRN (08:18)
[2017-08-11] MEDS: GABAPENTIN 400 MG CAPSULE PO SCH (08:22)
[2017-08-11 08:23] VITALS: BP 100/60
[2017-08-11] MEDS: CLONIDINE HCL 0.1 MG TABLET PO SCH (08:23)
== END 2017-08-11 09:30 | disposition other institution (70) | DRG 897 ==
LOC: SRC 22:41
PROVIDERS: ADMIT Internal Medicine; ATTEND Internal Medicine
PROC: HZ2ZZZZ Detoxification Services for Substance Abuse Treatment (ICD-10-PCS; principal; 2017-08-07)
DX: F15.23 Other stimulant dependence with withdrawal (principal); F11.23 Opioid dependence with withdrawal; E87.2 Acidosis; M62.82 Rhabdomyolysis; F33.2 Major depressive disorder, recurrent severe without psychotic features; F15.221 Other stimulant dependence with intoxication delirium; E83.42 Hypomagnesemia; I15.9 Secondary hypertension, unspecified; Z59.0 Homelessness; Z59.1 Inadequate housing; Z91.14 Patient's other noncompliance with medication regimen; J45.20 Mild intermittent asthma, uncomplicated; F17.210 Nicotine dependence, cigarettes, uncomplicated; F13.239 Sedative, hypnotic or anxiolytic dependence with withdrawal, unspecified; F41.9 Anxiety disorder, unspecified; G47.00 Insomnia, unspecified; R26.81 Unsteadiness on feet; F12.10 Cannabis abuse, uncomplicated; E86.0 Dehydration
CPT/HCPCS: 36415; 80307; 80324; 80346; 80353; 83605; 83735; 84703; 85025; 86580; 86592; 86705; 86803; 87340; 87806; A4663; G0480; Q0162; Q0163

== ENCOUNTER 2017-10-23 18:58 | Inpatient (IN) | payer OTHER ==
[~2017-10-23] VITALS: Ht 160 cm; Wt 49.9 kg
[~2017-10-23 18:58] MED LIST changes: +ALBU18HF2 IH; -BACL20TA PO; -BUPR-96 PO; +CLON0.1T14 PO; -LACT1CAP57 PO; -LEVO750T21 PO; +METH-406 PO; -ONDA4TAB11 SL; +TOPI25TA PO; -TRAZ-144 PO
--- NOTE | 2017-10-23 19:45 | NUR ---
Intake Note Pt is a 26y/o female seen in intake office for admission into [facility] for Substance Abuse, medically managed withdrawal. Pt list substances as Xanax, Heroin, Suboxone, Methamphetamine salts and Marijuana. Pt presents as extremely intoxicated. Pt has slumping posture in chair, olson over head with head down, dirty and disheved clothing, dirty fingernails with poor oral hygiene pulling hair away from her face, claiming hair is sticking to her face. Pt also c/o throat is swelling/closing shut. CN called downstairs to assess pt with this RN. Pt eyes downcast, unable to assess, pt will not follow most requests or instructions. Voice is extremely soft, pt continuously rubbing/scratching body and all extremities. Able to answer some questions about substance use, hospital d/c from [facility] earlier today. VS's obtained: T 97.9, [place] 21389, HR 81, RR 14 and SaO2.100%. Pt in [facility] in [place] overnight, d/c'd today, for O/D, d/c papers with pt, citing UTI treated with Keflex at [facility].Policies and procedures of unit explained to pt, pt noddiing agreement.
[2017-10-23] MEDS ORDERED: ONDANSETRON 4 MG/2 ML VIAL IM PRN (20:45)
[2017-10-23] MEDS ORDERED: IBUPROFEN 600 MG TABLET PO PRN (20:45)
[2017-10-23] MEDS ORDERED: LORAZEPAM 1 MG TABLET PO PRN ×2 (20:45)
[2017-10-23] MEDS ORDERED: DICYCLOMINE HCL 20 MG TABLET PO PRN (20:45)
[2017-10-23] MEDS ORDERED: MAGNESIUM HYDROXIDE 30 ML LIQUID UDC PO PRN (20:45)
[2017-10-23] MEDS ORDERED: CLONIDINE HCL 0.1 MG TABLET PO PRN (20:45)
[2017-10-23] MEDS ORDERED: ACETAMINOPHEN 325 MG TABLET PO PRN (20:45)
[2017-10-23] MEDS ORDERED: MIRALAX 17 GM POWD.PACK PO PRN (20:45)
[2017-10-23] MEDS ORDERED: LOPERAMIDE HCL 2 MG CAPSULE PO PRN ×2 (20:45)
[2017-10-23] MEDS ORDERED: BUPRENORPHINE HCL 2 MG TAB.SUBL SL PRN (20:45)
[2017-10-23] MEDS ORDERED: MAG HYDROX/AL HYDROX/SIMETH 30 ML LIQUID UDC PO PRN (20:45)
[2017-10-23] MEDS ORDERED: LORAZEPAM 2 MG/1 ML VIAL IM PRN (20:45)
[2017-10-23 21:00] VITALS: BP 97/55
[2017-10-23 21:03] LABS: *URINE HCG, QUAL NEGATIVE (NEGATIVE)
[2017-10-23 21:17] LABS: *AMPHETAMINE, URINE POSITIVE (NEGATIVE); *BARBITURATE, URINE NEGATIVE (NEGATIVE); *CANNABINOID, URINE POSITIVE (NEGATIVE); *COCCAINE, URINE POSITIVE (NEGATIVE); *OPIATE, URINE NEGATIVE (NEGATIVE); *PHENCYCLIDINE SCREEN,URINE POSITIVE (NEGATIVE)
--- NOTE | 2017-10-23 21:30 | NUR ---
Admission Note Pt is a 26 y/o female being admitted to [facility] for medically managed withdrawal from Benzodiazapines, Opiates, Suboxone, Methamphetamine salts and Marijuana. Pt admitted to unit on 10/23/17 at 2025 hours. Pt presents as severely intoxicated, slumped posture with olson over head, pulling at hair with both hands saying "my hair is sticking to my face". Fingernails are dirty, pt is disheveled with uncombed hair and poor oral hygiene, unwashed clothing. Skin is pale. Affect is flat with avoidant eye contact. Pt is extremely anxious and agitated, pulling at hair and saying "there's something wrong with my throat, it feels like its swelling up". Pt also insisting on having a nurse/doctor check her head for : foliculitis, lice, scabies, and shingles. Vital signs are stable with BP 97/55, HR 73, RR 15, T 97.5, and SaO2 100%. Pt originally reports substances used in this order: 1. Methamphetamine salts IV/IH 2-3g/day for 3-4 weeks, last use 2 days prior on 2. Heroin IV 1 g/day for 3-4 weeks, last use 2 days prior on 3. Suboxone 4mg (in car to [facility] about 7pm). This was a one time use 4. Marijuana 1'hit'/day, last use unknown 5. Xanax 3-5 bars/day reported by CN later, last use unknown. Due to level of intoxication, pt is an extremely poor historian, requiring prompting and redirecting multiple times. Pt denies any SZ Hx, SI/HI, w/d induced cardiac complications or delirium. Does admit to 5 overdoses, due to GHB and heroin for which they received medical care. Pt also denies any 5150 or Psych hospitalizations. Researching past admission notes it is noted pt with multiple admissions into detox/rehabs, with 4 admissions to this facility since September 2016. When asked for number of admissions into detox/rehabs, pt states "I can't count", tho says she got 60 days sobriety while at [facility] rehab 60 days ago. Pt also states longest period as 90 days from Mar 2017 to June 2017. Pt to this facility from [facility] in [place], where she was admitted previous day, 10/22/17, for O/D, and diagnosed with a UTI and prescribed Keflax. Rock also reports of a "bipolar episode" but pt denies. Pt states father was a Meth addict and mother was an alcoholic, says she lives with friends and has her own room since her 2 years ago, tho prior reports show her as "homeless". When asked why pt is seeking treatment at this time/facility, pt states "cause I'm gonna ", But when asked what is different about this admission, Pt states "I don't know". Feelings of low self-esteem, guilt/shame, dysphoria evident in patient expression. Pt denies any PMH or PPH, tho later admits to depression, anxiety, insomnia, r hand fx and surgery, and 2 thoracic vertabrae fx's, nasal polyp surgery. Prior reports also list asthma and HPV and MRSA in 2017. 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 Pt medicated with Ativan 2mg PO for agitation, Zofran 4mg SL for nausea w/o emesis (pt attempting to induce vomiting with fingers), Benedryl 50mg PO for itching (pt scratching/rubbing body/all extremities/face and head) and Mag-Ox 400mg PO for Mg of 1.5, Keflex 500mg PO for UTI. MRSA swab and U/A collected and sent to lab, blood work, including Chem and CBC collected. 1:1 sitter at door for intoxication and unsteady gait. Unit rules and regulations explained to pt, pt verbalizes understanding, reinforcement needed. All orders and medications acknowledged. Will continue to monitor patient for duration of shift, promptly attending to all s/sx's w/d or distress untill giving endorsement in am to day nurse.
[2017-10-23 22:11] LABS: BASOPHILS # (AUTO) 0.1 K/uL (0.0-8.0); BASOPHILS % (AUTO) 0.5 % (0.0-2.0); EOSINOPHILS # (AUTO) 0.2 K/uL (0.0-0.7); EOSINOPHILS % (AUTO) 1.6 % (0.0-7.0); HEMATOCRIT 34.9 % (31.2-41.9); HEMOGLOBIN 12.2 g/dL (10.9-14.3); LYMPHOCYTES # (AUTO) 2.4 K/uL (20.0-40.0); LYMPHOCYTES % (AUTO) 23.9 % (20.5-51.5); MEAN CORPUSCULAR HEMOGLOBIN 32.8 uug (24.7-32.8); MEAN CORPUSCULAR HGB CONC 35 g/dL (32.3-35.6); MEAN CORPUSCULAR VOLUME 94.1 fL (75.5-95.3); MONOCYTES # (AUTO) 0.9 K/uL (2.0-10.0); MONOCYTES % (AUTO) 8.9 % (0.0-11.0); NEUTROPHILS # (AUTO) 6.4 K/uL (1.8-8.9); NEUTROPHILS % (AUTO) 65.1 % (38.5-71.5); PLATELET COUNT (AUTO) 325 K/uL (179-408); RED BLOOD CELL COUNT(AUTO) 3.71 MIL/uL (3.63-4.92); WHITE BLOOD COUNT (AUTO) 9.8 K/uL (3.8-11.8)
[2017-10-23 22:17] LABS: ETHANOL < 3 MG/DL (0-0)
[2017-10-23 22:32] LABS: ALANINE AMINOTRANSFERASE 22 U/L (14-59); ALKALINE PHOSPHATASE 55 U/L (50-136); ASPARTATE AMINOTRANSFERASE 14 U/L (15-37); BILIRUBIN,TOTAL 0.2 mg/dL (0.2-1.0); CARBON DIOXIDE 29 mmol/L (21-32); CHLORIDE 104 mmol/L (98-107); CREATININE 0.7 mg/dL (0.6-1.3); GLUCOSE 94 mg/dL (74-106); LIPASE 125 U/L (73-393); MAGNESIUM 1.5 mg/dL (1.8-2.4); POTASSIUM 3.6 mmol/L (3.5-5.1); THYROID STIMULATING HORMONE 1.423 mIU/mL (0.358-3.740); TOTAL PROTEIN, SERUM 6.7 g/dL (6.4-8.2); UREA NITROGEN, BLOOD 10 mg/dL (7-18)
[2017-10-23] MEDS ORDERED: LORAZEPAM 1 MG TABLET PO ONE (22:45)
[2017-10-23] MEDS ORDERED: MAGNESIUM OXIDE 400 MG TABLET PO ONE (23:00)
[2017-10-23] MEDS: diphenhydrAMINE 50 MG CAPSULE PO PRN (23:45)
[2017-10-23] MEDS: ONDANSETRON ODT 4 MG TAB.RAPDIS SL PRN (23:45)
--- NOTE | 2017-10-23 23:45 | NUR ---
PRN Meds Ativan 2mg PO for anxiety/agitation, Benedryl 50mg PO for insomnia/itching, Mag-Ox 400mg PO for Mg 1.5. Will continue to monitor and promptlyy attend to all s/sx's w/d or distress.
--- NOTE | 2017-10-23 23:45 | NUR ---
PRN Med Zofran 4mg SL for nausea without emesis, dry heaves, pt attempting to induce vomiting. Will continue to monitor and reassess in 1 hour.
[2017-10-24] VITALS: BP 114/71
[2017-10-24] MEDS ORDERED: CEPHALEXIN MONOHYDRATE 250 MG CAPSULE PO SCH
--- NOTE | 2017-10-24 | NUR ---
COWS/CIWA Deferred COWS and CIWA deferred r/t severe intoxication. VS's stable BP 109/70, HR 68, RR 12, T 97.3, SaO2 97%. Will continue to monitor pt and promptly attend to all s/sx's w/d or distress.
[2017-10-24] MEDS ORDERED: CEPHALEXIN MONOHYDRATE 500 MG CAPSULE ONE (00:05)
--- NOTE | 2017-10-24 00:45 | NUR ---
PRN Reassessment Ativan 2mg PO for anxiety/agitation, Benedryl 50mg PO for insomnia/itching, and Mag-Ox 400mg PO for Mg 1.5 given 1 hour prior. At present Pt is sleeping, RR 12, even and non-labored. Meds effective.
--- NOTE | 2017-10-24 00:45 | NUR ---
Zofran 4mg SL given for nausea w/o emesis 1 hour prior. At present no vomiting, pt sleeping, RR 12, even and nonlabored. Med effective
[2017-10-24 04:00] VITALS: BP 97/63
--- NOTE | 2017-10-24 04:00 | NUR ---
OWS/CIWA Deferred COWS and CIWA deferred r/t intoxication. VS's stable BP 97/63, HR 56, RR 12, T 97.9, SaO2 99%. Will continue to monitor pt and promptly attend to all s/sx's w/d or distress.
--- NOTE | 2017-10-24 07:39 | NUR ---
End of Shift [facility] Pt admitted evening of 10/23 for medically managed withdrawal from Xanax, Heroin, Suboxone, Methamphetamine salts, and Marijuana in a severely intoxicated state. Pt came from [facility] where admitted on 10/2117 for Heroin O/D, dx with UTI, bipolar episode at hospital noted. After medicated for agitation, anxiety with Ativan for anxiety/agitation, pt slept for shift, 0400 still too intoxicated for COWS/CIWA evaluation. Pt placed on 1:1 observation. Pt presented with flat affect, soft, slurred speech. Avoidant eye contact in dirty clothes and uncombed hair, racing thoughts, extremely anxious and agitated. Tactile hallucinations tigre her admission with paranoia, picking, feeling "bumps" where no bumps are apparent. Originally convinced her hair was sticking to her face and "her throat was closing up" in Intake Office. In pt rm pt obsessed with thoughts of "folliculitis, scabies, lice, or shingles" in her scalp. Pt assured MD would examine in am. Pt received as PRN'S: Ativan 2mg PO for anxiety/agitation, Zofran 4mg SL for nausea w/o emesis (while hoarding food in bed), Benedryl for insomnia and itching, and Mag-Ox 400mg PO for Mg of 1.5. Pt slept for 6 hours, with 1200mls intake, 1 voids and no BM. Ativan and Subutex PRN's until MD rounds in am.
[2017-10-24 08:00] VITALS: BP 90/60
--- NOTE | 2017-10-24 08:05 | NUR ---
START OF SHIFT: Received Pt laying in bed with eyes closed. She is easily aroused and when she speaks her speech is slurred and unclear. She states she needs sleep. 1:1 sitter at bedside for safety. Will allow Pt to sleep for a little while.
[2017-10-24] MEDS ORDERED: TUBERCULIN,PURIF.PROT.DERIV. 5 TU/0.1 ML TEST ID ONE (09:00)
[2017-10-24] MEDS: MULTIVITAMINS,THERAPEUTIC TABLET PO SCH (09:00)
[2017-10-24] MEDS: CEPHALEXIN MONOHYDRATE 500 MG CAPSULE PO SCH ×4 (09:30→20:55)
--- NOTE | 2017-10-24 09:30 | NUR ---
Pt is refusing meds and only wants Keflex. She refuses PPD. Her speech continues to be slurred and Pt cannot keep her eyes open. COWS and CIWA deferred. Will continue to monitor and provide safe and supportive environment. 1:1 sitter at bedside for safety.
--- NOTE | 2017-10-24 10:30 | NUR ---
1:1 discontinued per . states she is clear of lice and any other communicable diseases.
[2017-10-24 12:00] VITALS: BP 101/60
--- NOTE | 2017-10-24 12:40 | NUR ---
Pt continues to have slurred speech and is very sedated. Side rails x 2. Bed locked and low. Call peres in reach. COWS ans CIWA deferred.
--- NOTE | 2017-10-24 13:00 | NUR ---
1200 COWS and CIWA deferred. Pt is asleep with respirations even and unlabored. Side rails up X 2. Call peres in reach.
[2017-10-24] MEDS: TOPIRAMATE 25 MG TABLET PO SCH ×2 (15:57→20:55)
[2017-10-24 16:00] VITALS: BP 109/59
--- NOTE | 2017-10-24 16:56 | NUR ---
1600 COWS and CIWA deferred. Pt is asleep with respirations even and unlabored. Side rails up X 2. Call peres in reach. Will continue to monitor and offer support.
--- NOTE | 2017-10-24 17:54 | NUR ---
Pt is A/O X4. She presents with irritable mood and congruent affect. She reports nausea,yawning ,watry eyes,runny nose,body aches and chills. COWS 14 CIWA 7. PRN Ativan 1 mg po given and Subutex 4 mg given as ordered. WIll monitor effectiveness of PRM medication.
[2017-10-24] MEDS: ONDANSETRON ODT 4 MG TAB.RAPDIS SL PRN (18:31)
--- NOTE | 2017-10-24 19:14 | NUR ---
END OF SHIFT; Pt slept most of shift and dis not wake up until almost 1800. She c/o s/s of w/d which include anxiety,watery eyes, chills body aches and irritability. COWS 14 and CIWA 7. Ativan 1 mg po given prn and Subutex 4 mg given and effective. Last COWS 10 CIWA 5. She continues to stay in bed and isolate in her room. Will pass shift report to oncoming night nurse.
--- NOTE | 2017-10-24 19:30 | NUR ---
START OF SHIFT Pt is a 26 y/o female admitted on 10/23/17 for benzo, opiate and meth withdrawal. Pt has PRN Ativan and Subutex available at this time. PRN Subutex 4 mg, Ativan 1 mg and Zofran odt administered and last COWS 10 and CIWA 10 during day shift. Pt has a UTI, on Keflex. Upon assessment pt presents with anxiety, agitation, lethargy, solmolence, fatigue, poor concentration, disheveled appearance, unkempt room and is difficult to arouse. Respirations are even and unlabored. Medications due. Safety measures in place. Call light within reach. Will continue to monitor.
[2017-10-24 20:00] VITALS: BP 109/64
--- NOTE | 2017-10-24 20:00 | NUR ---
COWS 8 AND CIWA 11 Pt was difficulty to arouse. Upon awakening, pt presents with anxiety, agitation, lethargy, somnolence, fatigue, poor concentration, stuffy nose, disheveled appearance, and unkempt room. Respirations even and unlabored.
[2017-10-25] VITALS: BP 104/63
--- NOTE | 2017-10-25 | NUR ---
COWS 8 AND CIWA 10 Pt presents with anxiety, agitation, lethargy, somnolence, poor concentration, stuffy nose, body aches, disheveled appearance. Pt woke came back up from a smoking break.
[2017-10-25 04:00] VITALS: BP 91/55
--- NOTE | 2017-10-25 04:00 | NUR ---
COWS/CIWA DEFERRED Pt laying in bed with eyes closed, COWS/CIWA deferred, to be assessed when pt is awake per orders. Respirations even and unlabored. Safety measures in place. Call light within reach. Will continue to monitor.
[2017-10-25] MEDS ORDERED: BUPRENORPHINE HCL 2 MG TAB.SUBL SL PRN (06:30)
[2017-10-25] MEDS ORDERED: LORAZEPAM 1 MG TABLET PO PRN ×2 (06:30)
--- NOTE | 2017-10-25 07:30 | NUR ---
END OF SHIFT Pt is a 26 y/o female admitted on 10/23/17 for benzo, opiate and meth withdrawal. Pt has PRN Ativan and Subutex available, not on taper at this time. Pt presented with anxiety, agitation, lethargy, somnolence, stuffy nose, fatigue, poor concentration, poor appetite, body aches, disheveled appearance, unkempt room and was difficult to arouse. Respirations are even and unlabored. Scheduled medications administered. No PRNs administered. Last COWS 8 and CIWA 10. Pt slept 10 hours. Intake 1729, void x 3, stool x 0. Safety measures in place. Call light within reach. Pts needs have been met. Endorsed to day shift nurse.
--- NOTE | 2017-10-25 07:37 | NUR ---
Start of Shift Notes: Received patient in her room. She is laying in bed with eyes closed. Arousable but appears too sedated upon waking. Falls back asleep right after. She appears disheveled and unkempt. Room is messy with food and dirty clothes and linen thrown on the floor. Hair is uncombed and appears to have poor regards to hygiene. Encouraged maintenance of personal hygiene and space. Patient is a 26 year old female admitted for opiate/BZO and methamphetamine withdrawal. She is currently on PRNs at this time to manage her withdrawal symptoms. Educated patient on her current plan of care for the day and her medication regimen, but she is noted to be unable to focus. Oral fluids encouraged. Per night report, patient did not received any PRNs. Last . Slept for 9 hours. All needs met and attended. Will continue to monitor.
[2017-10-25 08:00] VITALS: BP 101/59
[2017-10-25] MEDS: MULTIVITAMINS,THERAPEUTIC TABLET PO SCH (08:38)
[2017-10-25] MEDS: TOPIRAMATE 25 MG TABLET PO SCH ×2 (08:38→20:29)
--- NOTE | 2017-10-25 08:38 | NUR ---
COWS/CIWA Assessment/PRN Robaxin/Ativan 2 mg and Subutex 4 mg SL given/MD Communication: COWS 15, CIWA 16, patient presented with restlessness, gross tremors, she is unable to keep still in one position. She complains of 5/10 generalized myalgia. She states "I feel like shit." She denies any S/I or H/I noted. No AV hallucinations. She is seen scratching all her arms and head. No rashes noted. Noted with tactile disturbance m/b itching. Her affect is congruent. Teary eyed, anxious and agitated from generalized discomfort. Medicated patient with Robaxin 750 mg PO for myalgia, Ativan 2 mg PO for CIWA 16 and SUbutex 4 mg SL for COWS 15. Notified MD. Support provided. Oral fluids encouraged. Encouraged to attend group. All needs met and attended. Will monitor for effectiveness.
[2017-10-25] MEDS: METHOCARBAMOL 750 MG TABLET PO PRN ×2 (08:39→20:29)
[2017-10-25] MEDS: CEPHALEXIN MONOHYDRATE 500 MG CAPSULE PO SCH ×4 (08:39→20:29)
--- NOTE | 2017-10-25 09:08 | NUR ---
Re-assessment: Subutex 4 mg SL COWS 13, she less facial flushing, restlessness noted. Skin moist to touch. She appears guarded. She continues to complain of anxiety, fatigue, and itching of the skin. Will continue to monitor and offer PRNS.
--- NOTE | 2017-10-25 09:38 | NUR ---
Re-assessment: Robaxin/Ativan CIWA 14, patient verbalizes "My joint pain is now a 2/10. It's OK." PRN Robaxin was effective. She continues to present with sweats, anxiety, agitation, and itching of the skin. Offered PRN Zyrtec. Patient states "I'll take it later." Education provided. Offered fluids. Support provided. Will continue to monitor.
--- NOTE | 2017-10-25 10:45 | NUR ---
MD Communication: Taper orders Patient will be started on 3-day Subutex taper with 1 dose to be given at 2100 tonight and 3-day Ativan taper with 2 doses to be given at 1700 today. Orders noted and carried out. Taper orders were faxed to pharmacy.
[2017-10-25 12:00] VITALS: BP 102/50
[2017-10-25] MEDS: CETIRIZINE HCL 10 MG TABLET PO PRN (12:11)
--- NOTE | 2017-10-25 12:11 | NUR ---
Zyrtec 10 mg PO given: Patient noted with itching. No rashes noted. PRN Zyrtec 10 mg PO given as ordered. Will monitor for effectiveness.
--- NOTE | 2017-10-25 12:30 | NUR ---
COWS/CIWA Assessment: COWS 12/CIWA 12, patient noted with complain of anxiety, restlesness, diaphoresis, agitation, facial flushing, and tremors. Support provided. Oral fluids encouraged. Will continue to monitor.
--- NOTE | 2017-10-25 12:42 | NUR ---
MD Communication: 1:1 Patient was noted to have unsteady gait and appears hypersomnolent. Patient was placed on 1:1 for safety.
--- NOTE | 2017-10-25 13:11 | NUR ---
Re-assessment: Zyrtec Patient noted with less itching noted. PRN Zyrtec 10 mg PO was effective.
[2017-10-25 16:00] VITALS: BP 93/46
[2017-10-25] MEDS: LORAZEPAM 1 MG TABLET PO SCH ×2 (17:09→20:29)
--- NOTE | 2017-10-25 17:13 | NUR ---
COWS/CIWA Assessment: Patient is awake at this time. COWS 12/CIWA 12, patient continues to exhibit s/s of withdrawal m/b generalized itching, paresthesia, anxiety. She states "My anxiety is crazy right now." She also noted with complains of fatigue, intermittent perspirations and light sensitivity. Encouraged patient to verbalize her feelings. Support provided. To continue current orders at this time. Safety precautions in place.
--- NOTE | 2017-10-25 19:05 | NUR ---
End of Shift Notes: Patient was placed on a 3-day Subutex and 3-day Ativan taper as ordered today. No adverse reactions noted. VS monitored closely. No significant abnormalities noted. Withdrawal symptoms were closely monitored. Initial COWS 15/CIWA 16, patient presented with gross tremors, anxiety, agitation, decreased appetite, tactile disturbance, itching, nausea, difficulty tolerating oral intake, dyspepsia, malaise, fatigue, muscle aches and light sensitivity. She was placed on a 1:1 for unsteady gait. Medicated patient with Subutex 4 mg, Ativan 2 mg and Robaxin 750 mg PO at 0838 and Zyrtex 10 mg Po at 1211 with help after 1 hour. Last COWS 12/CIWA 12. Patient was unable to participate in group and activities due to her withdrawal symptoms and periods of hyper somnolence during the day. Safety precautions in place. Call light in reach. Will continue to monitor closely.
--- NOTE | 2017-10-25 19:30 | NUR ---
START OF SHIFT Pt is a 26 y/o female admitted on 10/23/17 for benzo, opiate and meth withdrawal. Pt started a 3 day Subutex and 3 day Ativan taper today, tolerating well. Pt also has PRN Ativan and Subutex at this time. Last COWS 12 and CIWA 12 and PRN Ativan, Robaxin and Subutex administered during day shift. Pt is on a 1:1 for unsteady gait. Upon assessment pt presents with anxiety, lethargy, restlessness, elevated HR, agitation, somnolence, slurred speech, generalized itchiness, body aches, stuffy nose, difficulty staying asleep, disheveled appearance and unkempt room. Pt also reports tactile disturbances and states, I feel like there is hair in my throat and in my eyes. Medications due. Safety measures in place. Call light within reach. Will continue to monitor.
[2017-10-25 20:00] VITALS: BP 100/72
--- NOTE | 2017-10-25 20:00 | NUR ---
COWS 12 AND CIWA 13 Pt presents with anxiety, lethargy, restless legs, elevated HR, agitation, somnolence, slurred speech, generalized itchiness, body aches, stuffy nose, difficulty staying asleep, disheveled appearance and unkempt room. 1:1 sitter at bedside.
[2017-10-25] MEDS: ONDANSETRON ODT 4 MG TAB.RAPDIS SL PRN (20:29)
--- NOTE | 2017-10-25 20:29 | NUR ---
PRN ROBAXIN AND ZOFRAN ODT ADMINISTRATION Pt reports body aches 6/10 and nausea without vomiting. Safety measures in place. 1:1 sitter at bedside. Will continue to monitor.
--- NOTE | 2017-10-25 20:59 | NUR ---
PRN KASHMIR ODT REASSESSMENT Pt reports nausea has ceased. Safety measures in place. 1:1 sitter at bedside. Will continue to monitor.
[2017-10-25] MEDS ORDERED: BUPRENORPHINE HCL 2 MG TAB.SUBL SL SCH (21:00)
--- NOTE | 2017-10-25 21:29 | NUR ---
PRN ROBAXIN REASSESSMENT Pt laying in bed with eyes closed, medication noted effective. Safety measures in place. 1:1 sitter at bedside. Will continue to monitor.
--- NOTE | 2017-10-25 22:39 | NUR ---
PRN ATIVAN 1 MG ADMINISTRATION CIWA 14, pt presents with restless legs, anxiety, agitation, sweats. Pt states, "I'm having racing thoughts and feel so anxious." Safety measures in place. 1:1 sitter at bedside. Will continue to monitor.
--- NOTE | 2017-10-25 23:39 | NUR ---
PRN ATIVAN 1 MG REASSESSMENT CIWA 13. Pt presents with anxiety, restlessness, sweats, and generalized itchiness/tactile disturbances. Safety measures in place. 1:1 sitter at bedside. Will continue to monitor.
[2017-10-26] VITALS: BP 105/63
--- NOTE | 2017-10-26 | NUR ---
COWS 11 AND CIWA 13 Pt presents with anxiety, lethargy, restlessness, somnolence, slurred speech, generalized itchiness, body aches 7/10, stuffy nose, difficulty staying asleep, disheveled appearance, unkempt room and is fidgety. 1:1 sitter at bedside.
--- NOTE | 2017-10-26 04:00 | NUR ---
COWS/CIWA DEFERRED AND VITALS REFUSED Pt laying in bed with eyes closed, COWS/CIWA deferred, to be assessed when pt is awake per orders. Vitals refused. Respirations even and unlabored. Safety measures in place. Call light within reach. Will continue to monitor.
--- NOTE | 2017-10-26 07:18 | NUR ---
END OF SHIFT Pt is a 26 y/o female admitted on 10/23/17 for benzo, opiate and meth withdrawal. Pt started a 3 day Subutex and 3 day Ativan taper on 10/25/17, tolerating well. Pt also had PRN Ativan and Subutex at this time. Pt is on a 1:1 for unsteady gait. Pt presented with anxiety, lethargy, restlessness, elevated HR, agitation, somnolence, slurred speech, generalized itchiness, body aches, nausea, stuffy nose, difficulty staying asleep, disheveled appearance and unkempt room. Pt reported persistent itchiness not relieved by medications. Scheduled medications and PRN Robaxin, Zofran and Ativan 1 mg administered, effective in S/S of withdrawal as verbalized by pt. Last COWS 11 and CIWA 13. Pt slept 5 hours. Intake 708 ml, void x 2, stool x 0. Safety measures in place. 1:1 sitter at bedside. Pts needs have been met. Endorsed to day shift nurse.
[2017-10-26 08:00] VITALS: BP 129/69
--- NOTE | 2017-10-26 08:00 | NUR ---
START OF SHIFT Pt is a 26 y/o F admitted on 10/23/17 for medically supervised benzo, opiate and meth withdrawal. Pt is on the second day of a 3 day subutex and ativan taper and tolerating well. Upon assessment, pt has a disheveled appearance, appears drowsy and has a slurred speech but arousable to touch. Pt is on a 1:1 sitter for unsteady gait. Pt presents lethargy, fatigue, generalized itchiness, generalized body aches, anxiety, agitation, irritability, somnolence, elevated HR. Last COWS 11 and CIWA 13 @MN. Side rails upx2, bed in low position, call light is within reach. Safety measures in place. Will continue to monitor closely.
--- NOTE | 2017-10-26 08:00 | NUR ---
COWS 11 AND CIWA 13 Pt is in wheelchair upon assessment, in front of the nursing station with 1:1 at her side. Pt appears disheveled, lethargic, drowsy, has a slurred speech, elevated HR, presents with anxiety, restless legs, agitation, somnolence, generalized itchiness, generalized body aches, nasal congestion. Scheduled meds to be given. Will continue to monitor.
[2017-10-26] MEDS: BUPRENORPHINE HCL 2 MG TAB.SUBL SL SCH ×3 (08:59→21:07)
[2017-10-26] MEDS: LORAZEPAM 1 MG TABLET PO SCH ×3 (08:59→21:07)
[2017-10-26] MEDS: CEPHALEXIN MONOHYDRATE 500 MG CAPSULE PO SCH ×4 (08:59→21:07)
[2017-10-26] MEDS: TOPIRAMATE 25 MG TABLET PO SCH ×2 (08:59→21:07)
[2017-10-26] MEDS: MULTIVITAMINS,THERAPEUTIC TABLET PO SCH (09:40)
--- NOTE | 2017-10-26 12:00 | NUR ---
COWS 11 AND CIWA 14 Pt has 1:1 at her bedside. Pt is drowsy but arousable to name, and touch. Pt continues to be lethargic, has a slurred speech, elevated HR, anxious, sweating, dilated pupils, has restless legs, agitation, somnolence, generalized itchiness, generalized body aches 5/10, nasal congestion. Pt refuses prn. Will continue to monitor.
[2017-10-26 12:16] VITALS: BP 134/72
--- NOTE | 2017-10-26 16:00 | NUR ---
COWS 13 AND CIWA 14 Pt has 1:1 at her bedside. Pt is drowsy but arousable to name, and touch. Pt continues to be lethargic but more alert, complains of tingling sensations in arms, elevated HR, anxious, sweating, difficulty concentrating, difficulty thinking, dilated pupils, has restless legs, agitation, somnolence, generalized itchiness, generalized body aches 5/10, nasal congestion. Pt refuses prn. Will continue to monitor.
[2017-10-26 16:23] VITALS: BP_SYST 104; BP_SYST 124; BP_DIAS 71
--- NOTE | 2017-10-26 19:01 | NUR ---
END OF SHIFT Pt has been lethargic, c/o itchings, tingling of the arms, anxious and tired but arousable. Last COWS 13 and CIWA 14. Pt continue to have a 1:1 sitter for unsteady gait. No prns given during shift. Encouraged pt to increase fluids as tolerated to increase fluid intake/hydration. Pt ate 25/25/50% of meals. Fluid intake 700 ml, voidedx4, bm 0. Safety measures in place. Endorsement given to manager shift nurse.
--- NOTE | 2017-10-26 19:01 | NUR ---
START OF SHIFT NOTE: The patient is a 26 year old female continues 3 day Ativan and 3 day Subutex tapers ordered for Benzodiazepines (Xanax), Opioid (Heroin, Suboxone), and Methamphetamine withdrawal, which tolerated well. Patient remains compliant with medications, treatment, and diet regime. The patient reports NKA, Regular Diet, is on Full Code, Fall and Seizures Precautions. Past Medical History: Anxiety, Depression, Asthma, Insomnia, HPV, UTI, Nasal Polyp Sx, Right hand Sx. The patient placed on 1:1 for safety/unsteady gate. During the day patient slept for most of the time, per day shift nurse report. Upon admission the patient is alert and oriented x4, with clear, soft speech. Mood anxious, flat affect. She is noted disheveled, unkempt, with uncombed hair. The most recent COWS=13, CIWA=14 at 1600: During day shift patient c/o anxiety, agitation, irritability, stomach cramps, nausea, moderate pins and needles sensations, dilated pupils, somnolence, restlessness, tachycardia, fatigue, nervousness, tremors, generalized body aches, sweating, nasal congestion, and yawning. Respirations are even and unlabored. The patient denies SOB, chest pain, and cough. Abdomen is soft and non-tendered. Bowel Sounds are active in all 4 quadrants. Skin is intact, warm, and dry. Multiple healed scabs from drugs injections noted on patient's Face and BUE. All needs met. Safety measures: Call light within reach, bed is locked in lowest position, padded bed rails up x2. Endorsed by outgoing day shift nurse. Will continue to monitor closely.
[2017-10-26 20:00] VITALS: BP 110/65
--- NOTE | 2017-10-26 20:00 | NUR ---
COWS/CIWA ASSESSMENT. COWS=14, CIWA=14 at 2000: The patient presented with anxiety, agitation, irritability, stomach cramps, pins and needles sensations,dilated pupils, restlessness, fatigue, nervousness,tremors, generalized body aches, sweating, nasal congestion, and yawning. 1:1 sitter at bedside for safety: unsteady gait. All needs met. Safety measures: Call light within reach, bed is locked in lowest position, padded bed rails up x2. Will continue to monitor closely.
[2017-10-26] MEDS: ONDANSETRON ODT 4 MG TAB.RAPDIS SL PRN (21:27)
--- NOTE | 2017-10-26 21:27 | NUR ---
PRN ZOFRAN ODT 4 MG SL ADMINISTRATION. The patient c/o nausea. She is denies vomiting for now. PRN Zofran Odt 4 mg SL administrated for nausea at 2126, as ordered. Patient tolerated well. 1:1 sitter at bedside for safety: unsteady gait. All needs met. Safety measures: Call light within reach, bed is locked in lowest position, padded bed rails up x2. Will continue to monitor closely.
--- NOTE | 2017-10-26 22:06 | NUR ---
PRN ZOFRAN INJ. 4 MG/2 ML IM ADMINISTRATION. PRN Zofran Odt 4 mg SL administrated for nausea at 2126 was not effective. The patient c/o nausea and vomiting x1. PRN Zofran Inj. 4 mg/2 ml IM administrated for nausea and vomiting to Right Deltoid Muscle at 2202. Patient tolerated well. 1:1 sitter at bedside for safety: unsteady gait. All needs met. Safety measures: Call light within reach, bed is locked in lowest position, padded bed rails up x2. Will continue to monitor closely.
--- NOTE | 2017-10-26 22:27 | NUR ---
PRN ZOFRAN 4MG SL RE-ASSESSMENT. PRN Zofran Odt 4 mg SL administrated for nausea at 2126 was not effective. The patient c/o nausea and vomiting x1. PRN Zofran Inj. 4 mg/2 ml IM administrated for nausea and vomiting to Right Deltoid Muscle at 2205, as ordered. Patient tolerated well. 1:1 sitter at bedside for safety: unsteady gait. All needs met. Safety measures: Call light within reach, bed is locked in lowest position, padded bed rails up x2. Will continue to monitor closely.
--- NOTE | 2017-10-26 22:36 | NUR ---
PRN ZOFRAN INJ. 4 MG/2 ML IM RE-ASSESSMENT. The patient sleeping. RR:16. Respirations are even and unlabored. PRN Zofran Inj. 4 mg/2 ml IM administrated for nausea and vomiting to Right Deltoid Muscle at 2203 was effective. 1:1 sitter at bedside for safety: unsteady gait. All needs met. Safety measures: Call light within reach, bed is locked in lowest position, padded bed rails up x2. Will continue to monitor closely.
[2017-10-27] VITALS: BP 94/63
--- NOTE | 2017-10-27 | NUR ---
COWS/CIWA ASSESSMENT. COWS=12, CIWA=12 at 0000: The patient presented with anxiety, agitation, irritability, pins and needles sensations, dilated pupils, restlessness, fatigue, nervousness, tremors, sweating, nasal congestion, and yawning. 1:1 sitter at bedside for safety: unsteady gait. All needs met. Safety measures: Call light within reach, bed is locked in lowest position, padded bed rails up x2. Will continue to monitor closely.
[2017-10-27 04:00] VITALS: BP 109/64
--- NOTE | 2017-10-27 04:00 | NUR ---
COWS/CIWA ASSESSMENT. COWS=14, CIWA=14 at 0400: The patient presented with anxiety, agitation, irritability, stomach cramps, pins and needles sensations, dilated pupils, restlessness, fatigue, nervousness, tremors, sweating, nasal congestion, and yawning. 1:1 sitter at bedside for safety: unsteady gait. All needs met. Safety measures: Call light within reach, bed is locked in lowest position, padded bed rails up x2. Will continue to monitor closely.
[2017-10-27] MEDS: HYDROXYZINE PAMOATE 25 MG CAPSULE PO PRN (04:10)
--- NOTE | 2017-10-27 04:10 | NUR ---
PRN VISTARIL 25 MG 1 TABLET PO ADMINISTRATION PRN Vistaril 25 mg PO for anxiety at 0410 with full glass of water. Patient tolerated well. Safe and calm environment with minimized noises was provided. 1:1 sitter at bedside for safety/unsteady gait. All needs met. Safety measures in the place: Call light within reach, bed in the lowest position locked, and padded rails up x2. Will continue to monitor closely.
--- NOTE | 2017-10-27 05:10 | NUR ---
RE-ASSESSMENT Patient is sleeping. RR 16. Respirations even and unlabored. PRN Vistaril 25 mg PO administrated for anxiety at 0410 was effective. Safe and calm environment with minimized noises was provided. 1:1 sitter for safety/unsteady gait. All needs met. Safety measures: Call light within reach, bed in the lowest position and locked, padded rails up x2. Will continue to monitor closely.
--- NOTE | 2017-10-27 07:22 | NUR ---
END OF SHIFT NOTE: 26 years old female presented for Benzodiazepines (Xanax), Opioid (Heroin, Suboxone), and Methamphetamine withdrawal, continues ordered 3 day Ativan and 3 day Subutex tapers, which tolerated well. Withdrawal symptoms was closely monitored. She denies History of withdrawal-induced seizures. Patient is alert and oriented x4. Patient appears sad with poor eye contact. She is noted undernourished with dark circles around eyes with uncombed hair. Education in safety and hygiene care provided. Patient was encouraged to independently perform hygiene care. COWS=14, CIWA=14 at 2000; COWS=12, CIWA=12 at 0000. The most recent COWS=14, CIWA=14 at 0400: The patient presented with anxiety, agitation, irritability, stomach cramps, nausea, vomiting, mild pins and needles sensations, dilated pupils, restlessness, fatigue, nervousness, tremors, sweating, nasal congestion, and yawning. PRN Zofran Odt 4 mg SL administrated for nausea at 2127 was not effective. PRN Zofran Inj. 4 mg/2 ml IM administrated for nausea and vomiting to Right Deltoid Muscle at 2206 was effective. PRN Vistaril 25 mg PO administrated for anxiety at 0410 was effective. Patient remains compliant with treatment, medications and diet regime. Safe and calm environment with minimized noises was provided. Patient slept 8 hours, intake 580 ml, voided x3, vomiting x1.. 1:1 sitter for safety/unsteady gait. All needs met. Safety measures in the place: Call light within reach, bed in the lowest position and locked, padded rails up x2. Patient endorsed to day shift nurse.
--- NOTE | 2017-10-27 07:39 | NUR ---
Start of Shift Notes: Received patient in her room. She is laying in bed with eyes closed. 1:1 at bedside and within arm's reach. Arousable but appears too sedated upon waking. Unable to keep her eyes open. She appears disheveled and unkempt. Room is messy with food and dirty clothes and linen thrown on the floor. Hair is uncombed, oily and appears to have poor regards to hygiene. Encouraged maintenance of personal hygiene and space. Patient is a 26 year old female admitted for opiate/BZO and methamphetamine withdrawal. She is on a 3-day Ativan and 3-day Subutex taper as ordered to manage her withdrawal symptoms. Educated patient on her current plan of care for the day and her medication regimen, but she is noted to be unable to focus. Oral fluids encouraged. Per night report, patient received Zofran 4 mg SL and IM, as well as Vistaril. Last COWS 14/CIWA 14. Slept for 8 hours. All needs met and attended. Will continue to monitor.
[2017-10-27 08:00] VITALS: BP 110/67
[2017-10-27] MEDS ORDERED: BUPRENORPHINE HCL 2 MG TAB.SUBL SL SCH (09:00)
[2017-10-27] MEDS: CETIRIZINE HCL 10 MG TABLET PO PRN (09:33)
[2017-10-27] MEDS: TOPIRAMATE 25 MG TABLET PO SCH ×2 (09:33→21:33)
[2017-10-27] MEDS: MULTIVITAMINS,THERAPEUTIC TABLET PO SCH (09:33)
--- NOTE | 2017-10-27 09:33 | NUR ---
Zyrtec 10 mg PO given: patient was noted to scratch her body. Skin assessment done. No rashes. No lesions. No redness noted. Medicated patient with Zyrtec 10 mg PO as ordered. Will monitor for effectiveness.
[2017-10-27] MEDS: LORAZEPAM 1 MG TABLET PO SCH ×2 (09:34→21:34)
[2017-10-27] MEDS: ONDANSETRON ODT 4 MG TAB.RAPDIS SL PRN (09:56)
--- NOTE | 2017-10-27 09:56 | NUR ---
COWS/CIWA Assessment/Zofran 4mg SL given: COWS 10/CIWA 14, patient continues to appear disheveled, irritable, anxious, agitated, light sensitivity noted, scratching, nausea, chills and hot flashes. Medicated patient with Zofran 4 mg SL for nausea. Will monitor for effectiveness.
--- NOTE | 2017-10-27 10:33 | NUR ---
Re-assessment: Zyrtec Patient is seen to scratch her body less. She states "It's fine now." PRN Zyrtec was effective.
--- NOTE | 2017-10-27 10:56 | NUR ---
Re-assessment: Zofran 4 mg SL Patient verbalizes relief from nausea. PRN Zofran was effective. She is able to tolerate PO intake and fluids.
[2017-10-27 12:00] VITALS: BP 90/50
--- NOTE | 2017-10-27 12:00 | NUR ---
COWS/CIWA Assessment: COWS 9/CIWA 10, patient continues to present with anxiety, intermittent diaphoresis, restlessness, pupil dilation and nausea. Will continue to monitor and offer support. Oral fluids encouraged. Continues to be on 1:1.
--- NOTE | 2017-10-27 12:00 | NUR ---
/CHRISSY Assessment: COWS /CHRISSY 10, patient continues to appear disheveled, irritable, anxious, agitated, light sensitivity noted, scratching, nausea, chills and hot flashes. Will monitor for effectiveness. Addendum: 10/27/17 at 1914 by DEISY GIBSON LVN error in charting
[2017-10-27 15:49] LABS: BILIRUBIN,TOTAL 0.2 mg/dL (0.2-1.0); CREATININE 0.7 mg/dL (0.6-1.3); MAGNESIUM 1.9 mg/dL (1.8-2.4); POTASSIUM 3.9 mmol/L (3.5-5.1); TOTAL PROTEIN, SERUM 7.4 g/dL (6.4-8.2)
[2017-10-27 16:00] VITALS: BP 120/69
--- NOTE | 2017-10-27 19:00 | NUR ---
End of Shift Notes: Patient continues to be on 3-day Ativan taper and completed 3-day Subutex taper today. No adverse reactions noted. VS monitored closely. No significant abnormalities noted. Withdrawal symptoms were closely monitored. Initial COWS 10/CIWA 14, patient presented with gross tremors, anxiety, agitation, decreased appetite, tactile disturbance, itching, nausea, difficulty tolerating oral intake, dyspepsia, malaise, fatigue, muscle aches and light sensitivity. Continues to be on 1:1 for safety. Medicated patient with Zyrtex 10 mg Po at 0933 and Zofran 4 mg SL at 0956 help after 1 hour. Last COWS 10/CIWA 10. Patient was unable to participate in group and activities due to her withdrawal symptoms and periods of hyper somnolence during the day. She was encouraged to clean her room and dispose of the garbage in the room and became irritable and upset. Redirection and reassurance provided. Safety precautions in place. Call light in reach. Will continue to monitor closely.
--- NOTE | 2017-10-27 19:00 | NUR ---
START OF SHIFT NOTE: Endorsed 26 year old female tolerated well with 3 day Ativan and 3 day Subutex tapers ordered for Benzodiazepines (Xanax), Opioid (Heroin, Suboxone), and Methamphetamine withdrawal. The patient is alert and oriented x4, with clear, soft speech. Last COWS=10, CIWA=14 at 1600: Patient presented with moderate symptoms of withdrawal of anxiety, agitation, irritability, itching, stomach cramps, nausea, pins and needles sensations, dilated pupils, tremors, somnolence, restlessness, tachycardia, fatigue, nervousness, generalized body aches, sweating, nasal congestion, and yawning. Respirations are even and unlabored. The patient denies SOB, chest pain, and cough. Abdomen is soft and non-tendered. Bowel Sounds are active in all 4 quadrants. Skin is intact, warm, and dry. PRN Medications administrated throughout the day shift, and were effective, per day shift nurse report. The patient remains compliant with medications, treatment, and diet regime. The patient's ordered 1:1 for safety/unsteady gate. All needs met. Safety measures: Call light within reach, bed is locked in lowest position, padded bed rails up x2. Endorsed by outgoing day shift nurse. Will continue to monitor closely.
[2017-10-27 20:00] VITALS: BP 118/68
--- NOTE | 2017-10-27 20:00 | NUR ---
COWS/CIWA ASSESSMENT. COWS=12, CIWA=11 at 1999. The patient presented with anxiety, agitation, obv. irritability, nasal congestion, stomach cramps, constipation, very mild pins and needles sensations, dilated pupils, nervousness, tremors, sweating, yawning, restlessness, and fatigue. 1:1 sitter at bedside for safety: unsteady gait. All needs met. Safety measures: Call light within reach, bed is locked in lowest position, padded bed rails up x2. Will continue to monitor closely.
[2017-10-27] MEDS: diphenhydrAMINE 50 MG CAPSULE PO PRN (21:34)
--- NOTE | 2017-10-27 21:34 | NUR ---
PRN BENADRYL 50 MG 1 CAPSULE PO ADMINISTRATION. PRN Benadryl 50 mg PO administrated for insomnia at 2134 with full glass of water, as ordered. Patient tolerated well. Safe and calm environment with minimized noises was provided. 1:1 sitter at bedside for safety/unsteady gait. All needs met. Safety measures: Call light within reach, bed locked in the lowest position, and padded rails up x2. Will continue to monitor closely.
--- NOTE | 2017-10-27 21:50 | NUR ---
PRN MILK OF MAGNESIA 30 ML PO ADMINISTRATION Patient c/o constipation, and asked aid. PRN Milk of magnesia 30 ml PO administrated with full glass of water as ordered. Patient tolerated well. All needs met. Safe and calm environment with minimized noises was provided. Safety measures: Call light within reach, bed locked in lowest position, padded rails up bilaterally. Will continue to monitor closely.
--- NOTE | 2017-10-27 22:34 | NUR ---
PRN BENADRYL PO RE-ASSESSMENT Patient is sleeping. RR 14. Respirations even and unlabored. PRN Benadryl 50 mg PO administrated for insomnia at 2134 was effective. Safe and calm environment with minimized noises was provided. 1:1 sitter at bedside for safety/unsteady gait. All needs met. Safety measures: Call light within reach, bed locked in the lowest position, and padded rails up x2. Will continue to monitor closely.
--- NOTE | 2017-10-27 22:50 | NUR ---
PRN MILK OF MAGNESIA 30 ML PO RE-ASSESSMENT Patient reports BMx1: Brown, large, soft. PRN Milk of Magnesia 30 ml PO administrated for constipation at 2150 was effective. 1:1 sitter at bedside for safety/unsteady gait. All needs met. Safe and calm environment with minimized noises was provided. Safety measures: Call light within reach, bed locked in lowest position, padded rails up bilaterally. Will continue to monitor closely.
[2017-10-28] VITALS: BP 92/53
--- NOTE | 2017-10-28 | NUR ---
COWS/CIWA ASSESSMENT. COWS=11, CIWA=11 at 1999. The patient presented with anxiety, agitation, nervousness, obv. irritability, nasal congestion, mild pins and needles sensations, dilated pupils, tremors, sweating, restlessness, fatigue, and yawning. 1:1 sitter at bedside for safety: unsteady gait. All needs met. Safety measures: Call light within reach, bed is locked in lowest position, padded bed rails up x2. Will continue to monitor closely.
[2017-10-28 04:00] VITALS: BP 101/61
--- NOTE | 2017-10-28 04:00 | NUR ---
COWS/CIWA ASSESSMENT. COWS=12, CIWA=10 at 0400. The patient presented with anxiety, agitation, irritability, nasal congestion, stomach cramps, constipation, mild pins and needles sensations, nervousness, tremors, sweating, yawning, moderately fidgety, restlessness, and fatigue. 1:1 sitter at bedside for safety/unsteady gait, as ordered. All needs met. Safety measures: Call light within reach, bed in the lowest position and locked, padded rails up x2.
--- NOTE | 2017-10-28 07:22 | NUR ---
Start of Shift Notes: Received patient in her room. She is laying in bed with eyes closed. 1:1 at bedside and within arm's reach. Arousable when her name is called. Complains of being too loud in the hallway. Unable to keep her eyes open. Speech is clear and slow. She appears disheveled, uncombed hair and appears unkempt. Room is messy with food and dirty clothes and linen thrown on the floor. Encouraged maintenance of personal hygiene and space. Patient was encouraged to shower. Patient is a 26 year old female admitted for opiate/BZO and methamphetamine withdrawal. She is on a 3-day Ativan and 3-day Subutex taper as ordered to manage her withdrawal symptoms. Educated patient on her current plan of care for the day and her medication regimen, but she is noted to be unable to focus. Oral fluids encouraged. Per night report, patient received PRN Benadryl and MOM with help. All needs met and attended. Will continue to monitor.
--- NOTE | 2017-10-28 07:24 | NUR ---
END OF SHIFT NOTE: The patient is a 26 year old female completed 3 day Ativan and 3 day Subutex tapers ordered for Benzodiazepines (Xanax), Opioid (Heroin, Suboxone), and Methamphetamine withdrawal. Withdrawal symptoms was closely monitored. Patient remains compliant with treatment, medications and diet regime. Patient is alert and oriented x4, cooperative, with soft and clear speech. 1:1 sitter for safety/unsteady gait. The patient reports, "Feeling better. The anxiety, sweats have been lessened a bit now. The medications really help to me". COWS=12, CIWA=11 at 2000; COWS=11, CIWA=11 at 0000. 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 PRN Benadryl 50 mg PO administrated for insomnia at 2133, PRN Milk of Magnesia 30 ml PO administrated for constipation at 2149, and were not effective. Safe and calm environment with minimized noises was provided. Patient slept 6 hours, intake 1,319 ml, voided x4, stool x1. All needs met. Safety measures in the place: Call light within reach, bed in the lowest position and locked, padded rails up x2. Patient endorsed to day shift nurse.
[2017-10-28 08:00] VITALS: BP 96/66
[2017-10-28] MEDS: METHOCARBAMOL 750 MG TABLET PO PRN ×2 (09:12→22:19)
[2017-10-28] MEDS: TOPIRAMATE 25 MG TABLET PO SCH ×2 (09:12→20:39)
[2017-10-28] MEDS: MULTIVITAMINS,THERAPEUTIC TABLET PO SCH (09:12)
[2017-10-28] MEDS: HYDROXYZINE PAMOATE 25 MG CAPSULE PO PRN ×2 (09:12→22:19)
[2017-10-28] MEDS: ONDANSETRON ODT 4 MG TAB.RAPDIS SL PRN (09:12)
--- NOTE | 2017-10-28 09:12 | NUR ---
/ Assessment/PRN Robaxin, Zofran/Vistaril 25 mg PO given: 11/ 11, patient presented with gross tremors, anxiety, agitation, emotional volatility, complains of nausea, body aches. She states her body ache is a 5/10. She is noted to be restless and fidgety in bed. Medicated patient with Robaxin 750 mg, Zofran 4 mg and Vistaril 25 mg PO as ordered. Will monitor for effectiveness. Oral fluids encouraged. Encouraged attendance in group and activities.
--- NOTE | 2017-10-28 10:12 | NUR ---
Re-assessment: Robaxin/Zofran/Vistaril Patient verbalizes relief from nausea and anxiety. She states in a soft speech "It's gotten better." She also states that her pain level is now a 2 out of 10. PRN Robaxin, Vistaril and Zofran were effective.
[2017-10-28 12:00] VITALS: BP 111/71
--- NOTE | 2017-10-28 12:20 | NUR ---
Off 1:1 : Patient is ambulatory with steady gait. Able to walk independently from room to smoking patio. Notified MD. Educated patient on safety precautions. Patient was taken off 1:1 at this time.
--- NOTE | 2017-10-28 12:57 | NUR ---
COWS/CIWA Assessment: COWS 7/CIWA 8, continues to exhibit s/s of withdrawal m/b anxiety, agitation, gross tremors, and restlessness. Support provided. Will continue to monitor.
--- NOTE | 2017-10-28 13:00 | NUR ---
MD Communication: possible yeast infection Patient complained of vaginal itching. She states "I might have a yeast infection again." Refused vaginal area to be assessed. Notified MD. New orders received for vaginal culture. Orders noted and carried out.
[2017-10-28 16:00] VITALS: BP 110/62
--- NOTE | 2017-10-28 16:20 | NUR ---
COWS/CIWA Assessment: COWS 7/CIWA 8, patient continues to complain of anxiety and agitation, tactile disturbance m/b scratching, nausea, and sweats. Support provided. Oral fluids encouraged. All needs met and attended. Will continue to monitor closely.
--- NOTE | 2017-10-28 19:01 | NUR ---
End of Shift Notes: Patient completed her 3-day Ativan and 3-day Subutex taper successfully. No adverse reactions noted. Patient will be discharging to [facility] in [place]. VS monitored closely. No significant abnormalities noted. Withdrawal symptoms were closely monitored. Initial COWS 11/CIWA 11, patient presented with gross tremors, anxiety, agitation, decreased appetite, tactile disturbance, itching, nausea, difficulty tolerating oral intake, dyspepsia, malaise, fatigue, muscle aches and light sensitivity. Taken off 1:1 today. Patient is able to ambulate with steady gait. Medicated patient with Robaxin, Zofran, and Vistaril as ordered at 0912 with help after 1 hour. Last COWS 7/CIWA 8. Patient was unable to participate in group and activities due to her withdrawal symptom. Shower and personal hygiene was encouraged. Redirection and reassurance provided. Safety precautions in place. Call light in reach. Will continue to monitor closely.
--- NOTE | 2017-10-28 19:01 | NUR ---
START OF SHIFT NOTE: Presented patient is a 26 year old female scheduled for discharging tomorrow at 0930, as ordered. She is completed and tolerated well with 3 day Ativan and 3 day Subutex tapers ordered for Benzodiazepines, Opioid and Methamphetamine withdrawal. The patient remains compliant with medications, treatment, and diet regime. The patient is alert and oriented x4, with steady gait, cooperative with clear, soft speech, anxious mood and flat affect. Patient appears worried, mendez, and emotional. The most recent COWS=7, CIWA=8 at 1600: Patient presented with mild symptoms of withdrawal of anxiety, agitation, irritability, itching, stomach cramps, nausea, pins and needles sensations, dilated pupils, tremors, somnolence, restlessness, tachycardia, fatigue, nervousness, generalized body aches, sweating, nasal congestion, and yawning. Respirations are even and unlabored. The patient denies SOB, chest pain, and cough. Abdomen is soft and non-tendered. Bowel Sounds are active in all 4 quadrants. Skin is intact, warm, and dry. PRN Medications administrated throughout the day shift, and were effective, per day shift nurse report. All needs met. Safety measures: Call light within reach, bed is locked in lowest position, padded bed rails up x2. Endorsed by outgoing day shift nurse. Will continue to monitor closely.
[2017-10-28 20:00] VITALS: BP 109/70
--- NOTE | 2017-10-28 20:00 | NUR ---
COWS/CIWA ASSESSMENT: COWS=12, CIWA=12 at 2000: The patient c/o anxiety, agitation, irritability, clammy skin, stomach cramps, pins and needles sensations, myalgia, tremors, restlessness, fatigue, nervousness, sweating, nasal congestion, and yawning. Safe and calm environment with minimized noises was provided. All needs met. Safety measures: Call light within reach, bed in the lowest position and locked, padded rails up x2. Patient endorsed by day shift nurse.
[2017-10-28] MEDS ORDERED: TRAZODONE 100 MG TABLET PO SCH (21:00)
--- NOTE | 2017-10-28 22:19 | NUR ---
PRN VISTARIL 25 MG 1 CAPSULE PO AND PRN ROBAXIN 750 MG PO ADMINISTRATION PRN Vistaril 25 mg PO administrated for anxiety at 2219, and PRN Robaxin 750 mg PO administrated for myalgia at 2219, as ordered, with full glass of water. Patient tolerated well. Safe and calm environment with minimized noises was provided. All needs met. Safety measures in the place: Call light within reach, bed in the lowest position locked, and padded rails up x2. Will continue to monitor closely.
[2017-10-28] MEDS ORDERED: TOPI25TA PO (23:07)
--- NOTE | 2017-10-28 23:19 | NUR ---
PRN VISTARIL PO AND PRN ROBAXIN PO RE-ASSESSMENT Patient is sleeping. RR 15. Respirations even and unlabored. PRN Vistaril 25 mg PO administrated for anxiety at 2219, and PRN Robaxin 750 mg PO administrated for myalgia at 2219, were effective. Safe and calm environment with minimized noises was provided. All needs met. Safety measures in the place: Call light within reach, bed in the lowest position and locked, padded rails up x2. Will continue to monitor closely.
[2017-10-29] VITALS: BP 90/53
--- NOTE | 2017-10-29 | NUR ---
COWS/CIWA ASSESSMENT 2. COWS=11, CIWA=11 at 0000: Patient presented with mild withdrawal symptoms as anxiety, agitation, irritability, sweating, nervousness, tremors, that can be felt, not observe, nasal congestion, and fatigue.
[2017-10-29 04:00] VITALS: BP 96/55
--- NOTE | 2017-10-29 04:00 | NUR ---
COWS/CIWA ASSESSMENT: COWS=11, CIWA=10 at 0400: Patient presented with anxiety, agitation, irritability, clammy skin, stomach cramps, pins and needles sensations, myalgia, tremors, somnolence, restlessness,fatigue, nervousness, sweating, nasal congestion, and yawning. Safe and calm environment with minimized noises was provided. All needs met. Safety measures: Call light within reach, bed in the lowest position and locked, padded rails up x2.
--- NOTE | 2017-10-29 07:03 | NUR ---
END OF SHIFT NOTE: Endorsed patient is a 26 year old female completed 3 day Ativan and 3 day Subutex taper ordered for Benzodiazepines, Opioid, and Methamphetamine withdrawal. Patient is alert and oriented x4, cooperative, with clear and soft speech. She is ambulatory with steady gate. The patient appears sad with flat affect, and with poor eye contact. The patient encouraged to express her feelings. Education provided to use of Relaxation Techniques: Deep breathing exercises, guided imagery, and visualization. Patient noted to be disheveled, unkempt, and with uncombed hair. Educated in safety and hygiene care. Encouraged to independently perform hygiene care. COWS=12, CIWA=12 at 2000, COWS=11, CIWA=11 at 0000. The most recent COWS=11, CIWA=11 at 0400. The patient c/o anxiety, agitation, irritability, clammy skin, stomach cramps, pins and needles sensations, myalgia, tremors, restlessness, fatigue, nervousness, sweating, nasal congestion, and yawning. Skin is intact, warm and dry to touch. Encouraged to increase oral fluids as tolerated. PRN Vistaril 25 mg PO administrated for anxiety at 2219, and PRN Robaxin 750 mg PO administrated for myalgia at 2219, and were effective. Patient remains compliant with treatment, medications, and diet regime. The patient scheduled for discharging today. Calm and safety environment with minimized noises was provided. Patient slept 8 hours, intake1,000 ml, voided x1. Encouraged to fluid intake as tolerated. Encouraged to attend group activities. All needs met. Safety measures in the place: Call light within reach, bed locked in the lowest position, padded rails up x2. Patient endorsed to day shift nurse.
--- NOTE | 2017-10-29 07:27 | NUR ---
Start of shift note; Received report from night nurse. Patient is a 27 year old female admitted on 10/23/17 for Benzodiazepine and Opiate withdrawal. Patient presented with anxiety, difficulty concentrating, fatigue, generalized discomfort and muscle aches. Patient completed treatment without any adverse reactions. Patient is medically cleared for discharge today to be [facility]. Patient received PRN Robaxin and Vistaril noted to be effective. All safety measures secured. Will continue to monitor patient.
[2017-10-29 08:00] VITALS: BP 107/74
[2017-10-29] MEDS: MULTIVITAMINS,THERAPEUTIC TABLET PO SCH (08:23)
[2017-10-29] MEDS: TOPIRAMATE 25 MG TABLET PO SCH (08:23)
--- NOTE | 2017-10-29 09:35 | NUR ---
Discharge note; Patient is AOX4, completed treatment without any adverse reaction. Patient is medically cleared for discharge per MD. All valuables, belongings and prescription returned to patient. Patient left the facility at exactly 0935 on 10/29/17. Met all needs.
== END 2017-10-29 09:33 | disposition other institution (70) | DRG 895 ==
LOC: SRC 19:30
PROVIDERS: ADMIT Internal Medicine; ATTEND Family Medicine Addiction Medicine
PROC: HZ2ZZZZ Detoxification Services for Substance Abuse Treatment (ICD-10-PCS; principal; 2017-10-23)
PROC: HZ51ZZZ Individual Psychotherapy for Substance Abuse Treatment, Behavioral (ICD-10-PCS; 2017-10-25)
DX: F15.221 Other stimulant dependence with intoxication delirium (principal); N39.0 Urinary tract infection, site not specified; F31.5 Bipolar disorder, current episode depressed, severe, with psychotic features; F11.23 Opioid dependence with withdrawal; F13.239 Sedative, hypnotic or anxiolytic dependence with withdrawal, unspecified; Z91.89 Other specified personal risk factors, not elsewhere classified; F12.10 Cannabis abuse, uncomplicated; F17.210 Nicotine dependence, cigarettes, uncomplicated; F41.9 Anxiety disorder, unspecified; Z59.0 Homelessness; J45.20 Mild intermittent asthma, uncomplicated; G47.00 Insomnia, unspecified; E83.42 Hypomagnesemia
CPT/HCPCS: 36415; 80307; 80324; 80349; 80353; 83690; 83735; 84443; 84703; 85025; 86592; 86705; 86803; 87340; 87806; A4663; G0480; J2405; Q0162; Q0163

== ENCOUNTER 2018-04-11 22:44 | Emergency (ER) | payer MEDICAID, OTHER ==
[~2018-04-11] VITALS: Ht 157.5 cm; Wt 49.9 kg
[~2018-04-11 22:44] MED LIST changes: -CLON0.1T14 PO; -DICY20TA28 PO; -GABA-536 PO; -IBUP-1955 PO
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
[2018-04-12] MEDS ORDERED: LORAZEPAM 0.5 MG TABLET PO ONE (03:30)
[2018-04-12] MEDS ORDERED: LORAZEPAM 0.5 MG TABLET ONE (03:33)
--- NOTE | 2018-04-12 04:06 | NUR ---
Patient discharged to home in stable conditon. Written and verbal after care instructions given. Patient verbalizes understanding of instructions. Pt ambulated out of ER in steady gait. All blongings with pt. VSS. NAD noted.
[2018-04-12 04:09] VITALS: BP 114/71
== END 2018-04-12 04:09 | disposition home or self-care (01) ==
LOC: ER 22:44
DX: S06.0X0A Concussion without loss of consciousness, initial encounter (principal); T70.0XXA Otitic barotrauma, initial encounter; F17.200 Nicotine dependence, unspecified, uncomplicated; F12.10 Cannabis abuse, uncomplicated; Z79.899 Other long term (current) drug therapy; W51.XXXA Accidental striking against or bumped into by another person, initial encounter; Y93.89 Activity, other specified; Y92.89 Other specified places as the place of occurrence of the external cause; Y99.8 Other external cause status
CPT/HCPCS: 70450; 72125; A4663